=== PATIENT | female | born 1995 | race Caucasian/White ===

== ENCOUNTER → 2018-09-08 08:19 | Outpatient (CLI) | payer OTHER, SELFPAY ==
[2018-09-08 09:26] LABS: HCG,Quantitative 21 mIU/mL
== END ==
PROVIDERS: Visit Provider Nurse Practitioner Obstetrics & Gynecology
DX: Z32.00 Encounter for pregnancy test, result unknown (principal)
CPT/HCPCS: 36415; 84702

== ENCOUNTER → 2018-09-10 11:57 | Outpatient (CLI) | payer OTHER, SELFPAY ==
[2018-09-10 17:36] LABS: HCG,Quantitative 25 mIU/mL
== END ==
PROVIDERS: Visit Provider Nurse Practitioner Obstetrics & Gynecology
DX: Z32.00 Encounter for pregnancy test, result unknown (principal)
CPT/HCPCS: 36415; 84702

== ENCOUNTER → 2018-09-17 08:19 | Outpatient (CLI) | payer OTHER, SELFPAY ==
[2018-09-17 09:15] LABS: HCG,Quantitative 292 mIU/mL
== END ==
PROVIDERS: Visit Provider Nurse Practitioner Obstetrics & Gynecology
DX: Z32.00 Encounter for pregnancy test, result unknown (principal)
CPT/HCPCS: 36415; 84702

== ENCOUNTER → 2018-10-04 09:34 | Outpatient (CLI) | payer OTHER, SELFPAY ==
[2018-10-04 10:07] LABS: Basophils % 0.3 % (0.1-2.0); Eosinophils # 0.1 K/mm3 (0.0-0.4); Eosinophils % 0.7 % (0.1-12.0); Hematocrit 31.3 % (37.0-47.0); Hemoglobin 9.7 g/dL (12.2-16.2); Lymphocytes # 4.3 K/mm3 (0.7-4.5); Lymphocytes % 36.5 % (10-50); Mean Corpuscular Hemoglobin 25.1 pg (27.0-31.2); Mean Corpuscular Volume 80.9 fl (81-99); Mean Platelet Volume 8.7 fl (7.4-10.4); Monocytes # 0.3 K/mm3 (0.1-1.0); Monocytes % 2.5 % (1.7-9.3); Platelet Count 289 K/mm3 (142-424); Red Blood Count 3.87 M/mm3 (4.20-5.40); Red Cell Distribution Width 14.5 % (11.5-17.5); White Blood Count 11.7 K/mm3 (4.8-10.8)
[2018-10-05 08:17] LABS: HIV Screen 4th Generation wRfx Non Reactive (Non Reactive); Rapid Plasma Reagin Ab Titer Non Reactive (NonRea<1:1)
[2018-10-05 16:27] LABS: Hepatitis B Surface Antigen Negative (Negative); Hepatitis C Antibody 0.1 s/co ratio (0.0-0.9); Rubella Antibodies, IgG 1.69 index (Immune >0.99)
== END ==
PROVIDERS: Visit Provider Nurse Practitioner Obstetrics & Gynecology
DX: Z34.90 Encounter for supervision of normal pregnancy, unspecified, unspecified trimester (principal)
CPT/HCPCS: 36415; 85025; 86592; 86703; 86762; 86850; 87340; 87380; G0432

== ENCOUNTER → 2018-10-08 13:19 | Outpatient (CLI) | payer OTHER, SELFPAY ==
--- NOTE | 2018-10-08 13:22 | US_ITS ---
US OB transvaginal HISTORY: ITS.REASON: US OB Dates ORDERING PHYSICIAN: Sunil Deleon MD PATIENT AGE: 22 years COMPARISON: None FINDINGS: Uterus is retroverted An intrauterine gestational sac is present with a pole with a crown-rump length of 1.52cm correlating to gestational age of 8w0d. heart tones are present with an FHR of 157 bpm's. Yolk sac is noted. The amnion and chorion have not yet fused. Adnexa: Small bilateral ovarian cysts. IMPRESSION: Live intrauterine gestation at 8 weeks 0 days as described above. Estimated due date by Ultrasound is 05/20/2019
== END ==
PROVIDERS: PCP Family Medicine; Visit Provider Nurse Practitioner Obstetrics & Gynecology
DX: O26.841 Uterine size-date discrepancy, first trimester (principal)
CPT/HCPCS: 76817

== ENCOUNTER → 2018-12-31 13:26 | Outpatient (CLI) | payer OTHER, SELFPAY ==
--- NOTE | 2018-12-31 13:32 | US_ITS ---
PROCEDURE: US OB /MATERNAL DETAIL CLINICAL INDICATION: US OB Complete The the the the the the the the COMPARISON: OBTV US OB transvaginal from 10/08/2018 FINDINGS: Single viable intrauterine gestation. Cephalic position. Placenta: Posteriorplacenta grade 1. There is average amount fluid. The cervix appears satisfactory. Closed and measuring 3 cm in length. Complete survey performed and was unremarkable on the submitted images as in PACS. No discrete anomalies identified on survey imaging by technologist. Active fetus. Three-vessel cord with satisfactory umbilical cord insertion. 4- chamber heart noted. Survey of brain & ventricles Unremarkable. Face and neck survey unremarkable. Diaphragm and chest views unremarkable. Abdomen: Both kidneys noted and unremarkable. Stomach noted and satisfactory. Spine: Survey of the spine satisfactory with no anomalies identified nor imaged. Both arms and legs noted. Amniotic Fluid: Adequate. Maternal adnexa: No significant findings. Measurements: Average ultrasound age 20 weeks 2 days. Gestational Age 20 weeks Estimated due date by ultrasound age 0205/18/2019. Estimated weight 354.7 ggrams. BPD = 20 weeks OFD = 20 weeks 3 days HC = 19 weeks 4 days AC = 21 weeks 1 day FL = 20 weeks 1 day Growth Percentile= 71 percent% Heart Rate = Cerebellum = 19 weeks 6 days Humerus = 20 weeks 3 days HC/AC is 1.06 CI is 0.77 FL/BPD is 0.7 FL/AC is 0.2 IMPRESSION: There is a single live fetus in cephalic presentation with an average ultrasound age of 20 weeks and 2 days. All parameters correlate with no obvious anomalies. Please see above for detail Dictated by: Jayesh Apodaca MD 01/01/2019 10:43 Electronically signed by Jayesh Apodaca MD in [facility] 01/01/2019 10:43
== END ==
PROVIDERS: PCP Family Medicine; Visit Provider Nurse Practitioner Obstetrics & Gynecology
DX: Z36.0 Encounter for antenatal screening for chromosomal anomalies (principal)
CPT/HCPCS: 76811

== ENCOUNTER → 2019-02-16 11:26 | Outpatient (CLI) | payer OTHER, SELFPAY ==
[2019-02-16 12:22] LABS: Glucose,Fasting 107 mg/dL (60-105)
[2019-02-16 13:19] LABS: Glucose 1 Hour 201 mg/dL (74-106)
== END ==
PROVIDERS: Visit Provider Nurse Practitioner Obstetrics & Gynecology
DX: Z34.90 Encounter for supervision of normal pregnancy, unspecified, unspecified trimester (principal)
CPT/HCPCS: 36415; 82951

== ENCOUNTER → 2019-02-17 08:42 | Outpatient (CLI) | payer OTHER, SELFPAY | PROVIDERS: Visit Provider Nurse Practitioner Obstetrics & Gynecology | DX: Z34.90 Encounter for supervision of normal pregnancy, unspecified, unspecified trimester (principal) | CPT/HCPCS: 36415 ==

== ENCOUNTER → 2019-02-22 10:08 | Outpatient (CLI) | payer OTHER, SELFPAY ==
[2019-02-22 11:01] LABS: Glucose,Fasting 124 mg/dL (60-105)
[2019-02-22 12:08] LABS: Glucose 1 Hour 245 mg/dL (74-106)
[2019-02-22 17:42] LABS: Glucose 2 Hour 253 mg/dL (74-106); Glucose 3 Hour 185 mg/dL (74-106)
== END ==
PROVIDERS: Visit Provider Nurse Practitioner Obstetrics & Gynecology
DX: Z34.90 Encounter for supervision of normal pregnancy, unspecified, unspecified trimester (principal)
CPT/HCPCS: 36415; 82951

== ENCOUNTER → 2019-04-22 15:46 | Outpatient (CLI) | payer OTHER, SELFPAY | PROVIDERS: Visit Provider Nurse Practitioner Obstetrics & Gynecology | DX: Z34.90 Encounter for supervision of normal pregnancy, unspecified, unspecified trimester (principal); Z3A.36 36 weeks gestation of pregnancy | CPT/HCPCS: 86403 ==

== ENCOUNTER 2019-04-26 12:01 | Outpatient (CLI) | payer OTHER, SELFPAY ==
[2019-04-26] VITALS (8 sets, daily range): BP systolic 129–165; BP diastolic 80–97; BMI 49.2
[2019-04-26 13:32] LABS: Microscopic, Urine URINE MICROSCOPIC (MICROSCOPIC)
[2019-04-26 13:33] LABS: Appearance,Urine SL CLOUDY (Clear); Bilirubin,Urine Negative (Negative); Blood, Urine Negative (Negative); Color,Urine YELLOW (Yellow); Glucose,Urine (UA) Negative (Negative); Ketones,Urine TRACE (Negative); Leukocyte Esterase,Urine Negative (Negative); Nitrate,Urine Negative (Negative); Protein,Urine TRACE (Negative); Specific Gravity, Urine >= 1.030 (1.005-1.030); Urobilinogen,Urine 0.2 EU/dl (0.2)
[2019-04-26 13:42] LABS: Amphetamine/Metha Screen,Urine Negative ng/mL (<1000); Barbiturates Screen,Urine Negative ng/mL (<200); Benzodiazepines Screen,Urine Negative ng/mL (<200); Cannabinoid Screen,Urine Negative ng/mL (<50); Cocaine Screen,Urine Negative ng/mL (<300); Methadone Screen,Urine Negative ng/mL (<300); Opiate Screen,Urine Negative ng/mL (<300); Phencyclidine Screen,Urine Negative ng/mL (<25)
[2019-04-26 13:47] LABS: Bacteria,Urine Trace /lpf; Mucus,Urine 3+ /lpf
[2019-04-26 14:05] LABS: Basophils % 0.2 % (0.1-2.0); Eosinophils % 0.2 % (0.1-12.0); Hemoglobin 11.3 g/dL (12.2-16.2); Lymphocytes # 3.3 K/mm3 (0.7-4.5); Mean Corpuscular HGB Conc 32.4 g/dL (31.8-35.4); Mean Corpuscular Hemoglobin 26.8 pg (27.0-31.2); Mean Corpuscular Volume 82.8 fl (81-99); Mean Platelet Volume 10.6 fl (7.4-10.4); Monocytes # 0.3 K/mm3 (0.1-1.0); Monocytes % 2.3 % (1.7-9.3); Neutrophils # 8.2 K/mm3 (1.8-7.8); Neutrophils % 69.3 % (37.0-80.0); Platelet Count 243 K/mm3 (142-424); Red Blood Count 4.23 M/mm3 (4.20-5.40); Red Cell Distribution Width 13.9 % (11.5-17.5); White Blood Count 11.8 K/mm3 (4.8-10.8)
[2019-04-26 14:30] LABS: Alanine Aminotransferase 30 U/L (12-78); Anion Gap 16.7 mEq/L (5-15); Aspartate Amino Transferase 20 U/L (15-37); Blood Urea Nitrogen 8 mg/dL (7-18); Calcium 8.7 mg/dL (8.5-10.1); Carbon Dioxide 23 mmol/L (21.0-32.0); Chloride 103 mmol/L (98-107); Creatinine Clearance Estimated 97 mL/min (50-200); Creatinine,Serum 0.74 mg/dL (0.55-1.02); Estimated Glomerular Filt Rate 96 ml/min (>60); GFR (African American) 117 ML/MIN (>60); Glucose 75 mg/dL (74-106); Potassium 3.7 mmoL/L (3.5-5.1); Sodium 139 mmol/L (136-145); Uric Acid 4.5 mg/dL (2.6-7.2)
[2019-04-26 15:26] LABS: Activated Partial Thrombo Time 27.5 seconds (23.6-34.0); Fibrinogen 500 mg/dL (204-500); INR 0.94 (0.9-1.1); Prothrombin Time 9.8 seconds (9.4-11.8)
[2019-04-26 15:29] LABS: D-Dimer 1000 ng/mL (0-400)
== END 2019-04-26 15:00 | disposition home or self-care (01) ==
LOC: OBOUT 12:03 → OB 12:05
PROVIDERS: PCP Family Medicine; Visit Provider Nurse Practitioner Obstetrics & Gynecology
DX: O26.893 Other specified pregnancy related conditions, third trimester (principal); Z3A.36 36 weeks gestation of pregnancy; R51 Headache
CPT/HCPCS: 36415; 59025; 80048; 80305; 81001; 84450; 84460; 84550; 85025; 85378; 85384; 85610; 85730; G0463

== ENCOUNTER 2019-05-03 05:10 | Inpatient (IN) ==
[2019-05-03 06:22] LABS: Microscopic, Urine URINE MICROSCOPIC (MICROSCOPIC)
[2019-05-03 06:32] LABS: Basophils % 0.2 % (0.1-2.0); Eosinophils % 0.3 % (0.1-12.0); Hematocrit 34.4 % (37.0-47.0); Hemoglobin 11.1 g/dL (12.2-16.2); Lymphocytes # 3.2 K/mm3 (0.7-4.5); Lymphocytes % 29.6 % (10-50); Mean Corpuscular HGB Conc 32.2 g/dL (31.8-35.4); Mean Corpuscular Volume 83.3 fl (81-99); Monocytes # 0.3 K/mm3 (0.1-1.0); Monocytes % 3.1 % (1.7-9.3); Neutrophils # 7.3 K/mm3 (1.8-7.8); Neutrophils % 66.8 % (37.0-80.0); Platelet Count 199 K/mm3 (142-424); Red Blood Count 4.12 M/mm3 (4.20-5.40); White Blood Count 10.9 K/mm3 (4.8-10.8)
[2019-05-03 06:34] LABS: Appearance,Urine SL CLOUDY (Clear); Bilirubin,Urine Negative (Negative); Blood, Urine Negative (Negative); Color,Urine YELLOW (Yellow); Glucose,Urine (UA) Negative (Negative); Ketones,Urine Negative (Negative); Leukocyte Esterase,Urine Negative (Negative); Protein,Urine TRACE (Negative); Specific Gravity, Urine >= 1.030 (1.005-1.030); Urobilinogen,Urine 0.2 EU/dl (0.2)
[2019-05-03 06:37] LABS: Calcium 8.7 mg/dL (8.5-10.1); Uric Acid 5.1 mg/dL (2.6-7.2)
[2019-05-03 06:41] LABS: Amphetamine/Metha Screen,Urine Negative ng/mL (<1000); Barbiturates Screen,Urine Negative ng/mL (<200); Benzodiazepines Screen,Urine Negative ng/mL (<200); Cannabinoid Screen,Urine Negative ng/mL (<50); Cocaine Screen,Urine Negative ng/mL (<300); Methadone Screen,Urine Negative ng/mL (<300); Opiate Screen,Urine Negative ng/mL (<300); Phencyclidine Screen,Urine Negative ng/mL (<25)
[2019-05-03 06:44] LABS: Activated Partial Thrombo Time 27.1 seconds (23.6-34.0); INR 0.92 (0.9-1.1); Prothrombin Time 9.6 seconds (9.4-11.8)
[2019-05-03 06:57] LABS: Bacteria,Urine 1+ /lpf; WBC,Urine Occasional #/hpf (0-3)
--- NOTE | 2019-05-03 08:06 | Progress Note ---
Labor Note - Subjective: Date: 05/03/19 Time: 08:05 regular contraction - Objective: NST:: Reactive Contractions:: every 2-3 minutes Cervical Dilation:: 3 Effacement:: 75% Station: -2 Membranes: artificially ruptured - Fetus: Monitoring?: Yes monitoring type:: Internal and External Comment:: I inserted an IUPC - Assessment: Labor progressing?: Yes Cephalopelvic disproportion?: No Patient Problems: All Active Problems Gestational diabetes (Acute) (Acute) Irregular periods (Acute) Annual physical exam (Acute) - Plan: Anesthesia for epidural?: No Continue to labor down?: Yes Plan for ?: No Continue to monitor?: Yes Start pushing?: No Comment:: She has gestational diabetes with likely chronic hypertension and overlying -induced hypertension. Since she is term we will go ahead and deliver her. She has a headache as well as feeling jittery.
--- NOTE | 2019-05-03 08:09 | History & Physical Report ---
OB - H&P: HPI Antepartum - History of Present Illness Chief complaint: She has -induced hypertension and gestational diabetes History of present illness: She is a 23-year-old 1 para 0 at 37+ weeks gestational age. She has gestational diabetes as well as increased blood pressure. She has been taking labetalol. She was seen in the office and continued to have a headache as well as feeling very jittery. Her reflexes were brisk. As result of this we elected to induce her labor. - History of Present Criteria for establishing EDC:: LMP confirmed by 1st trimester US care: good care Ultrasounds: normal 1st trimester US, normal mid trimester US Obstetrical complications: gestational diabetes, gestational hypertension Medical complications: none - Labs Blood type: AB (+) positive Rubella: immune RPR/VDRL: nonreactive GBS status: negative HBsAG: negative [facility] History I have reviewed the patient's past medical history: Yes Medical History: Denies:: Anxiety, Depression, Diabetes Mellitus Type 1, Hyperlipidemia, Hypertension, Migraine, MRSA *Have you ever received a pneumonia vaccine?: No *Have you received a flu vaccine this season?: Yes Laterality Cases: Bilateral: Tonsillectomy, Other Other Surgeries: Yes: Other. No: Amputation: No Fractures: No - *Social History Smoking Status: Never smoker Alcohol Intake: never Substance Use Type: denies use *Occupational Status:: employed Housing: house Household Members: family *Travel in the last 8 weeks: None - Psychiatric History Pschychiatric History:: Denies:: Anxiety, Depression Family Hx:: Diabetes, Heart Attack, Tuberculosis Para: 0 Review of Systems - Review of Systems Review of systems:: pertinent systems reviewed and negative unless documented below Meds Home Medications Medication Instructions Recorded Confirmed Type prenat.vits,nicolás,abz-[id number] 1 tab PO DAILY 12/01/17 05/03/19 History magnesium 250 mg tablet 500 mg PO DAILY tab 02/07/19 05/03/19 History RX: Ferrous Sulfate 325 mg PO DAILY 04/26/19 05/03/19 History RX: Labetalol HCl 200 mg PO BID 05/03/19 05/03/19 History Allergies Allergy/AdvReac Type Severity Reaction Status Date / Time Latex, Natural Rubber Allergy Mild Verified 05/02/19 12:06 Penicillins Allergy Unknown Verified 05/02/19 12:06 OB - H&P: Exam - Constitutional no acute distress - Routine HEENT Exam Head: Present: normocephalic Eye: Present: EOMI, PERRL ENT: Present: mucous membranes moist - Routine Neck Exam Present: supple, full ROM - Routine Respiratory Exam Absent: accessory muscle use (good air entry bilaterally), respiratory distress, wheezes, crackles - Routine Cardiovascular Exam Present: RRR. Absent: murmur - Routine Abdominal Exam Present: soft, normoactive bowel sounds. Absent: tenderness, distended, guarding - Routine Rectal Exam Patient deferred: visual exam, digital exam - Routine Exam Patient deferred: external exam, groin exam, perineal exam - Routine Extremities Exam Present: full ROM. Absent: cyanosis, edema - Routine Skin Exam Present: intact. Absent: cyanosis - Routine Neurological Exam Present: alert, oriented X3 - Routine Psychiatric Exam Present: normal affect OB - Results - Labs Labs: Short CBC 05/03/19 Range/Units 06:05 WBC 10.9 H (4.8-10.8) K/mm3 Hgb 11.1 L (12.2-16.2) g/dL Hct 34.4 L (37.0-47.0) % Plt Count 199 (142-424) K/mm3 BMP 05/03/19 06:05 Sodium 140 Potassium 4.0 Chloride 104 Carbon Dioxide 22 BUN 10 Creatinine 0.70 Glucose 131 H Calcium 8.7 Liver Function 05/03/19 Range/Units 06:05 AST 20 (15-37) U/L ALT 30 (12-78) U/L Urine 05/03/19 Range/Units 05:35 Urine Color Yellow (Yellow) Urine Appearance Sl cloudy (Clear) Urine pH 6.0 (5.0-8.5) Ur Specific [place] >= 1.030 (1.005-1.030) Urine Protein Trace (Negative) Urine Glucose (UA) Negative (Negative) OB - A/P Antepartum (1) induced hypertension, antepartum Current visit: Yes Status: Acute (2) Chronic hypertension affecting Current visit: Yes Status: Acute (3) Gestational diabetes Current visit: No Status: Acute - Additional Plan Planning to breastfeed?: Yes Plan: induction Additional Information:: She is currently 37+ weeks gestational age with gestational diabetes and increased blood pressure. As result of this we will induce her labor. She has been feeling unwell.
--- NOTE | 2019-05-03 10:46 | Progress Note ---
Labor Note - Subjective: Date: 05/03/19 Time: 10:45 regular contraction - Objective: NST:: Reactive Contractions:: every 2-3 minutes Cervical Dilation:: 4 Effacement:: 75% Station: -3 Membranes: artificially ruptured - Fetus: Monitoring?: Yes monitoring type:: Internal and External - Assessment: Labor progressing?: Yes Cephalopelvic disproportion?: No Patient Problems: All Active Problems induced hypertension, antepartum (Acute) Chronic hypertension affecting (Acute) Gestational diabetes (Acute) (Acute) Irregular periods (Acute) Annual physical exam (Acute) - Plan: Anesthesia for epidural?: Yes Continue to labor down?: Yes Plan for ?: No Continue to monitor?: Yes Start pushing?: No Comment:: She is progressing well. The cervix is very soft and 4 cm. She has an IUPC. She is awaiting an epidural. Will plan a vaginal delivery.
--- NOTE | 2019-05-03 12:21 | Progress Note ---
[facility] Anesthesia Checklist - Patient Identification Patient Identification: Arm Band, Verbal (Name & ) - Structural Data Admitted From: Home Planned Operative Procedure/s: Labor epidural Consent for Planned Operative Procedure(s) Verified: Yes Verified Documents: Surgical Consent, History and Physical - Chart Verification Results Verified: CBC - Additional verifications Patient : Yes Anesthesia Reactions: No - Airway Assessment C-Spine Mobility Assessed: Yes TMJ Mobility Assessed: Yes Dentition: Good Dentition (missing teeth) - Neurological Assessment Level of Consciousness: Awake, Alert, Appropriate, Follows Commands Hx Seizures: No Numbness or tingling in extremities: No - Anesthesia Plan Anesthesia Risk discussed: Yes Anesthesia Plan: Verified ASA Class: III Anesthesia Type: Epidural [facility] History I have reviewed the patient's past medical history: Yes Medical History: Reports:: Gastroesophageal Reflux Disease(GERD) ( induced), Hypertension (PIH) Denies:: Anxiety, Depression, Diabetes Mellitus Type 1, Hyperlipidemia, Migraine, MRSA *Have you ever received a pneumonia vaccine?: No *Have you received a flu vaccine this season?: Yes Anesthesia experience/problems:: no complications Laterality Cases: Bilateral: Tonsillectomy, Other Other Surgeries: Yes: Other. No: Amputation: No Fractures: No - *Social History Smoking Status: Never smoker Alcohol Intake: never Substance Use Type: denies use *Occupational Status:: employed Housing: house Household Members: family *Travel in the last 8 weeks: None - Psychiatric History Pschychiatric History:: Denies:: Anxiety, Depression Family Hx:: Diabetes, Heart Attack, Tuberculosis Para: 0 Comment: Pt states 37 weeks 5 days gestational age, dilated 4cm
--- NOTE | 2019-05-03 13:27 | Progress Note ---
Labor Note - Subjective: Date: 05/03/19 Time: 13:26 regular contraction - Objective: NST:: Reactive Contractions:: every 2-3 minutes Cervical Dilation:: 4-5 Effacement:: 90% Station: -2 Membranes: artificially ruptured - Fetus: Monitoring?: Yes monitoring type:: Internal and External - Assessment: Labor progressing?: Yes Cephalopelvic disproportion?: No Patient Problems: All Active Problems induced hypertension, antepartum (Acute) Chronic hypertension affecting (Acute) Gestational diabetes (Acute) (Acute) Irregular periods (Acute) Annual physical exam (Acute) - Plan: Anesthesia for epidural?: Yes Continue to labor down?: Yes Plan for ?: No Continue to monitor?: Yes Start pushing?: No Comment:: She is progressing slowly. The cervix has thinned out significantly. Baby's head is still little high. We will continue on.
--- NOTE | 2019-05-03 15:32 | Progress Note ---
Labor Note - Subjective: Date: 05/03/19 Time: 15:00 regular contraction - Objective: NST:: Reactive Contractions:: every 2-3 minutes Cervical Dilation:: 6 Effacement:: 100% Station: -1 Membranes: artificially ruptured - Fetus: Monitoring?: Yes monitoring type:: Internal - Assessment: Labor progressing?: Yes Cephalopelvic disproportion?: No Patient Problems: All Active Problems induced hypertension, antepartum (Acute) Chronic hypertension affecting (Acute) Gestational diabetes (Acute) (Acute) Irregular periods (Acute) Annual physical exam (Acute) - Plan: Anesthesia for epidural?: Yes Continue to labor down?: Yes Plan for ?: No Continue to monitor?: Yes Start pushing?: No Comment:: I put a scalp clip on. She was having a few variables. These have now settled. She is a good 6 cm and 100% effaced. The head is come down significantly. We will go ahead and start an amnioinfusion.
--- NOTE | 2019-05-03 16:53 | Progress Note ---
Labor Note - Subjective: Date: 05/03/19 Time: 16:51 regular contraction - Objective: NST:: Reactive Contractions:: every 2-3 minutes Cervical Dilation:: 9-10 Effacement:: 100% Station: +1 Membranes: artificially ruptured - Fetus: Monitoring?: Yes monitoring type:: Internal - Assessment: Labor progressing?: Yes Cephalopelvic disproportion?: No Patient Problems: All Active Problems induced hypertension, antepartum (Acute) Chronic hypertension affecting (Acute) Gestational diabetes (Acute) (Acute) Irregular periods (Acute) Annual physical exam (Acute) - Plan: Anesthesia for epidural?: Yes Continue to labor down?: Yes Plan for ?: No Continue to monitor?: Yes Start pushing?: No Comment:: She is doing well. She is 9 cm. Baby's head is down low.
--- NOTE | 2019-05-03 17:46 | Procedure Note ---
- Delivery Note Delivery Date:: 05/03/19 Delivery Time:: 17:31 Anesthesia Type: Epidural Was labor medically induced?: Yes Induction method: per pitocin protocol Infant delivered prior to 39 weeks?: Yes Justification for early elective delivery:: Gestational Hypertension Infant Gender: Male at 1 minute: 7 at 5 minutes: 9 LAC or MLE?: LAC Delivery Procedure:: She is a 23-year-old 1 now para 0 at 37+ weeks gestational age. She is been followed with increased blood pressure. She was seen in my office yesterday and had a headache and was feeling quite jittery. As result of that we elected to induce her labor at term. She was started on IV oxytocin and had her membranes ruptured. Under labor epidural she progressed to full dilation and delivered spontaneously a liveborn male child at 5:31 PM in the evening of May 03, 2019. On deliver the head the anterior shoulder then delivered followed by the rest the infant's body atraumatically. The baby was vigorous. The oropharynx and nasopharynx were bulb suction. We allowed the cord to continue to pulsate for approximately 1 minute. The cord was then doubly clamped and cut and the was placed on the mother's abdomen for further care. The nurses assigned Apgars of 7 at 1 minute and 9 at 5 minutes. We then obtained cord blood as well as cord pH. She received IV oxytocin and using gentle traction on the cord and countertraction fundus I was able to easily deliver the placenta intact. He had a normal three-vessel cord. She had a small first-degree vaginal laceration that was repaired with interrupted 3-0 Vicryl Rapide suture. She has a be positive blood, she is rubella immune and was group B streptococcus negative. Her diesel dinkey engineer is Dr. Olivas. Estimated blood loss was approximately 400 cc. Laceration:: vaginal Placental Delivery Description: Spontaneous
[2019-05-04 08:29] LABS: Hematocrit 31.6 % (37.0-47.0); Hemoglobin 10.4 g/dL (12.2-16.2)
--- NOTE | 2019-05-04 10:06 | Progress Note ---
Internal Medicine - PN: Subj *Date: 05/04/19 *Time: 10:04 Interval history: She is doing well this morning. She is eating and drinking and ambulating. She is breast-feeding. Her lochia is normal. She denies any pain. Her blood pressure is slightly elevated and she has been restarted on her labetalol 200 mg twice daily. She denies headache, scotomata or epigastric pain. Exam Vital signs and Labs for Last 24 Hours: Temp Pulse Resp BP Pulse Ox 98.6 F 74 18 111/55 L 100 05/03/19 08:00 05/03/19 08:00 05/03/19 08:00 05/03/19 08:00 05/03/19 08:00 Laboratory Results - last 24 hr 05/03/19 17:46: Cord ABG pH 7.21 L* 05/04/19 08:00: Hgb 10.4 L, Hct 31.6 L I & O for Last 24 hours: Intake & Output 05/01/19 05/02/19 05/03/19 05/04/19 11:59 11:59 11:59 11:59 Weight 279 lb - Constitutional no acute distress Assessment and Plan (1) induced hypertension, antepartum Current visit: Yes Status: Acute Category: Medical Code(s): O13.9 - Ges tational [-induced] hypertension without significant proteinuria, unspecified trimester (2) Chronic hypertension affecting Current visit: Yes Status: Acute Category: Medical Code(s): O10.919 - Unspecified pre-existing hypertension complicating , unspecified trimester (3) Gestational diabetes Current visit: No Status: Acute Qualifiers: Gestational diabetes mellitus control: diet-controlled Trimester: third trimester Qualified Code(s): O24.410 - Gestational diabetes mellitus in , diet controlled Category: Medical Code(s): O24.419 - Gestational diabetes mellitus in , unspecified control - Assessment and plan all Dx Assessment and Plan for all problems:: She is doing very well. She is breast-feeding. We will plan to send her home tomorrow.
--- NOTE | 2019-05-05 08:59 | Discharge Summary ---
General - General Admission date:: 05/03/19 Discharge date: 05/05/19 HPI HPI: She is a 23-year-old 1 now para 0 who had increased blood pressure. She also had diet-controlled gestational diabetes. As result of that she was brought in for induction of labor at term. Hospital Course Hospital Course: She was started on IV oxytocin and had her membranes ruptured. She progressed to full dilation and delivered spontaneously a liveborn male child at 5:31 PM in the afternoon of April 25, 2019. The baby is a liveborn male child weighing 7 pounds 14 ounces with Apgars of 7 at 1 minute and 8 at 5 minutes. She has done well and has remained afebrile throughout hospitalization. She is eating and drinking and ambulating. She is breast-feeding. Her display maker Dr. Olivas. Her blood pressure is well controlled on labetalol 200 mg twice daily. Her blood pressures have remained in the 130-140 range over 80-90 range. She denies any headache or scotomata. She is discharged home to follow-up with me in approximate 2 weeks time. She will continue with her vitamins and iron. She will continue with her labetalol 200 mg twice daily. She was given the usual instructions with respect to limiting her activity, driving and sexual activity. Her condition on discharge is stable. Rhogam Administration: Not Indicated Objective Vital signs: Temp Pulse Resp BP Pulse Ox 98.7 F 82 18 146/71 H 100 05/04/19 08:00 05/04/19 08:00 05/04/19 08:00 05/04/19 16:00 05/03/19 08:00 no acute distress DS: Diagnosis - Discharge Diagnosis (1) induced hypertension, antepartum Status: Acute (2) Chronic hypertension affecting Status: Acute (3) Gestational diabetes Status: Acute Discharge Plan - Patient Discharge Instructions ACTIVITY: No heavy lifting DIET: continue same diet Additional Instructions: No heavy lifting or strenuous activity, nothing in vagina for 6 weeks. Patient Instructions: DI for Hemorrhage, Depression, [facility] Post Discharge Instructions - Follow up Plan Follow up with: Sunil Deleon MD [Staff Physician] - Disposition: Home, Self-[facility]ci Medications: Home Medications Medication Instructions Recorded Confirmed Type prenat.vits,nicolás,[id number] 1 tab PO DAILY 12/01/17 05/03/19 History magnesium 250 mg tablet 500 mg PO DAILY tab 02/07/19 05/03/19 History Ferrous Sulfate 325 mg PO DAILY 04/26/19 05/03/19 History Labetalol HCl 200 mg PO BID 05/03/19 05/03/19 History Prescriptions/Medication Reconciliation: Continued prenat.vits,nicolás,kpe-[id number] 1 tab PO DAILY magnesium 250 mg tablet 500 mg PO DAILY tab Ferrous Sulfate 325 mg PO DAILY Labetalol HCl 200 mg PO BID - Problem Reconciliation Problems Reviewed?: Yes
[2019-05-05 09:08] VITALS: BP 120/61
== END 2019-05-05 11:45 | disposition home or self-care (01) | DRG 805 ==
LOC: OB 05:10
PROVIDERS: ADMIT Nurse Practitioner Obstetrics & Gynecology; ATTEND Nurse Practitioner Obstetrics & Gynecology
CPT/HCPCS: C1758

== ENCOUNTER → 2020-12-17 16:54 | Outpatient (CLI) | payer OTHER, SELFPAY ==
[2020-12-17 17:59] LABS: HCG,Quantitative 15 mIU/ml (0-5.42)
== END ==
PROVIDERS: Visit Provider Nurse Practitioner Obstetrics & Gynecology
DX: Z34.90 Encounter for supervision of normal pregnancy, unspecified, unspecified trimester (principal)
CPT/HCPCS: 36415; 84702

== ENCOUNTER → 2020-12-20 11:56 | Outpatient (CLI) | payer OTHER, SELFPAY ==
[2020-12-20 13:41] LABS: HCG,Quantitative 4 mIU/ml (0-5.42)
== END ==
PROVIDERS: Visit Provider Nurse Practitioner Obstetrics & Gynecology
DX: Z34.90 Encounter for supervision of normal pregnancy, unspecified, unspecified trimester (principal)
CPT/HCPCS: 36415; 84702

== ENCOUNTER → 2021-01-21 13:18 | Outpatient (CLI) | payer OTHER, SELFPAY ==
[2021-01-21 15:10] LABS: HCG,Quantitative 81 mIU/ml (0-5.42)
== END ==
PROVIDERS: Visit Provider Nurse Practitioner Obstetrics & Gynecology
DX: Z34.90 Encounter for supervision of normal pregnancy, unspecified, unspecified trimester (principal)
CPT/HCPCS: 36415; 84702

== ENCOUNTER → 2021-01-24 11:29 | Outpatient (CLI) | payer OTHER, SELFPAY ==
[2021-01-24 12:35] LABS: HCG,Quantitative 252 mIU/ml (0-5.42)
== END ==
PROVIDERS: Visit Provider Nurse Practitioner Obstetrics & Gynecology
DX: Z34.90 Encounter for supervision of normal pregnancy, unspecified, unspecified trimester (principal)
CPT/HCPCS: 36415; 84702

== ENCOUNTER → 2021-03-05 15:49 | Outpatient (CLI) | payer OTHER, SELFPAY ==
[2021-03-05 17:13] LABS: Basophils % 0.2 % (0.1-2.0); Eosinophils % 0.3 % (0.1-12.0); Hematocrit 33.5 % (37.0-47.0); Hemoglobin 11.2 g/dL (12.2-16.2); Lymphocytes # 3.8 K/mm3 (0.7-4.5); Lymphocytes % 30.4 % (10-50); Mean Corpuscular HGB Conc 33.3 g/dL (31.8-35.4); Mean Corpuscular Hemoglobin 26.6 pg (27.0-31.2); Mean Corpuscular Volume 79.7 fl (81-99); Mean Platelet Volume 8.6 fl (7.4-10.4); Monocytes # 0.3 K/mm3 (0.1-1.0); Monocytes % 2.5 % (1.7-9.3); Neutrophils # 8.4 K/mm3 (1.8-7.8); Neutrophils % 66.5 % (37.0-80.0); Platelet Count 313 K/mm3 (142-424); Red Cell Distribution Width 13.8 % (11.5-17.5); White Blood Count 12.6 K/mm3 (4.8-10.8)
[2021-03-07 05:09] LABS: Hepatitis B Surface Antigen Negative (Negative); Hepatitis C Antibody <0.1 s/co ratio (0.0-0.9)
[2021-03-07 07:32] LABS: HIV Screen 4th Generation wRfx Non Reactive (Non Reactive); HSV 2 IgG, Type Spec <0.91 index (0.00-0.90); Rubella Antibodies, IgG 1.56 index (Immune >0.99)
[2021-03-07 13:31] LABS: Rapid Plasma Reagin Ab Titer Non Reactive (NonRea<1:1)
== END ==
PROVIDERS: Visit Provider Nurse Practitioner Obstetrics & Gynecology
DX: Z34.90 Encounter for supervision of normal pregnancy, unspecified, unspecified trimester (principal); Z3A.01 Less than 8 weeks gestation of pregnancy
CPT/HCPCS: 36415; 85025; 86592; 86695; 86703; 86762; 86790; 86850; 87340; 87380; G0432

== ENCOUNTER → 2021-03-12 13:04 | Outpatient (CLI) | payer OTHER, SELFPAY ==
--- NOTE | 2021-03-12 13:05 | US_ITS ---
PROCEDURE: US OB <= 14 WEEKS FETUS CLINICAL INDICATION: for dates COMPARISON: US US OB /MATERNAL DETAIL from 12/31/2018 FINDINGS: There is a twin gestation. There are 2 gestational sacs and 2 embryos. Fetus a crown-rump length is 4.26 cm correlating to gestational age of 11 weeks 1 day. Heart rate is 144 BPM.. Fetus B has a crown lump length of 4.36 cm correlating to gestational age 11 weeks 2 days. Heart rate is 167 BPM. Placenta is are forming laterally. There is a 3 cm right ovarian cyst. Yolk sacs are noted in each sac IMPRESSION: Twin gestations at 11 weeks 1 day with an estimated due date of 09/29/2021. Dictated by: Jayesh Apodaca MD 03/12/2021 17:22 Jayesh Apodaca MD in [facility] 03/12/2021 17:22
== END ==
PROVIDERS: PCP Family Medicine; Visit Provider Nurse Practitioner Obstetrics & Gynecology
DX: Z34.90 Encounter for supervision of normal pregnancy, unspecified, unspecified trimester (principal)
CPT/HCPCS: 76801

== ENCOUNTER → 2021-06-05 07:38 | Outpatient (CLI) | payer OTHER, SELFPAY ==
[2021-06-05 08:10] LABS: Basophils # 0.1 K/mm3 (0-0.2); Basophils % 0.7 % (0.1-2.0); Eosinophils # 0.1 K/mm3 (0.0-0.4); Eosinophils % 0.8 % (0.1-12.0); Hematocrit 32.3 % (37.0-47.0); Hemoglobin 10.4 g/dL (12.2-16.2); Lymphocytes # 2.7 K/mm3 (0.7-4.5); Lymphocytes % 25.1 % (10-50); Mean Corpuscular HGB Conc 32.2 g/dL (31.8-35.4); Mean Corpuscular Hemoglobin 27.3 pg (27.0-31.2); Mean Corpuscular Volume 84.8 fl (81-99); Mean Platelet Volume 9.5 fl (7.4-10.4); Monocytes # 0.3 K/mm3 (0.1-1.0); Monocytes % 2.7 % (1.7-9.3); Neutrophils # 7.6 K/mm3 (1.8-7.8); Neutrophils % 70.7 % (37.0-80.0); Platelet Count 248 K/mm3 (142-424); Red Blood Count 3.81 M/mm3 (4.20-5.40); Red Cell Distribution Width 14.9 % (11.5-17.5); White Blood Count 10.7 K/mm3 (4.8-10.8)
[2021-06-05 09:46] LABS: Fibrinogen 597 mg/dL (229.9-363.5); INR 0.93 (0.9-1.1); Prothrombin Time 10.6 seconds (10.1-12.5)
[2021-06-05 09:51] LABS: D-Dimer 0.74 ug/mL (0.0-0.5)
[2021-06-05 10:03] LABS: Glucose 1 Hour 219 mg/dL (74-100); Glucose,Fasting 128 mg/dl (74-100)
[2021-06-05 10:53] LABS: Alanine Aminotransferase 27 U/L (12-78); Anion Gap 43.5 mEq/L (5-15); Aspartate Amino Transferase 27 U/L (14-36); Blood Urea Nitrogen 7 mg/dl (7-17); Carbon Dioxide 18 mmol/L (22.0-30.0); Chloride 85 mmol/L (98-107); Estimated Glomerular Filt Rate 193 ml/min (>60); GFR (African American) 233 ML/MIN (>60); Glucose 119 mg/dl (74-100); Potassium 3.5 mmoL/L (3.5-5.1); Sodium 143 mmol/L (136-145); Uric Acid 3.9 mg/dl (2.5-6.2)
[2021-06-05 12:31] LABS: Calcium 8.1 mg/dl (8.4-10.2)
== END ==
PROVIDERS: Visit Provider Nurse Practitioner Obstetrics & Gynecology
DX: O30.042 Twin pregnancy, dichorionic/diamniotic, second trimester (principal); Z3A.23 23 weeks gestation of pregnancy
CPT/HCPCS: 36415; 80048; 82951; 84450; 84460; 84550; 85025; 85378; 85384; 85610; 85730

== ENCOUNTER → 2021-06-10 09:40 | Outpatient (CLI) | payer OTHER, SELFPAY ==
[2021-06-10 11:00] LABS: Glucose,Fasting 111 mg/dl (74-100)
[2021-06-10 11:02] LABS: Collection Time,Urine 24 hours
[2021-06-10 12:06] LABS: Creatinine 24 Hour,Urine 1958 mg/24hr (630-2500); Patient Height,Urine 63 inches; Patient Weight,Urine 280 lbs
[2021-06-10 12:13] LABS: Total Protein 24 Hour,Urine 220 mg/24 hr (40-90)
[2021-06-10 12:16] LABS: Creatinine,Urine Random 89 mg/dL (Not Estab.)
[2021-06-10 12:31] LABS: Glucose 1 Hour 250 mg/dL (74-100)
[2021-06-10 13:06] LABS: Glucose 2 Hour 253 mg/dL (74-100)
[2021-06-10 13:48] LABS: Glucose 3 Hour 207 mg/dL (74-100)
[2021-06-10 13:51] LABS: Total Volume,Urine 2200 mL (600-1600)
[2021-06-10 14:19] LABS: Creatinine Clearance Urine 211.3 mL/min (25-115)
== END ==
PROVIDERS: Visit Provider Nurse Practitioner Obstetrics & Gynecology
DX: O30.009 Twin pregnancy, unspecified number of placenta and unspecified number of amniotic sacs, unspecified trimester
CPT/HCPCS: 36415; 82575; 82951; 84155

== ENCOUNTER → 2021-08-09 14:29 | Outpatient (CLI) | payer OTHER, SELFPAY ==
[2021-08-09 15:17] LABS: Basophils % 0.3 % (0.1-2.0); Eosinophils # 0.1 K/mm3 (0.0-0.4); Eosinophils % 0.7 % (0.1-12.0); Hematocrit 32.8 % (37.0-47.0); Hemoglobin 10.9 g/dL (12.2-16.2); Lymphocytes # 3.1 K/mm3 (0.7-4.5); Lymphocytes % 31.5 % (10-50); Mean Corpuscular HGB Conc 33.3 g/dL (31.8-35.4); Mean Corpuscular Hemoglobin 27.6 pg (27.0-31.2); Mean Corpuscular Volume 82.9 fl (81-99); Mean Platelet Volume 11.5 fl (7.4-10.4); Monocytes # 0.4 K/mm3 (0.1-1.0); Monocytes % 3.8 % (1.7-9.3); Neutrophils # 6.3 K/mm3 (1.8-7.8); Neutrophils % 63.7 % (37.0-80.0); Platelet Count 242 K/mm3 (142-424); Red Blood Count 3.95 M/mm3 (4.20-5.40); Red Cell Distribution Width 14.2 % (11.5-17.5); White Blood Count 9.9 K/mm3 (4.8-10.8)
[2021-08-09 15:25] LABS: D-Dimer 0.88 ug/mL (0.0-0.5)
[2021-08-09 15:26] LABS: Activated Partial Thrombo Time 23.5 seconds (22.8-30.6); Fibrinogen 664 mg/dL (229.9-363.5); Prothrombin Time 10.3 seconds (10.1-12.5)
[2021-08-09 15:38] LABS: Alanine Aminotransferase 41 U/L (12-78); Anion Gap 13.1 mEq/L (5-15); Aspartate Amino Transferase 39 U/L (14-36); Blood Urea Nitrogen 7 mg/dl (7-17); Calcium 8.8 mg/dl (8.4-10.2); Carbon Dioxide 21 mmol/L (22.0-30.0); Chloride 104 mmol/L (98-107); Estimated Glomerular Filt Rate 149 ml/min (>60); GFR (African American) 180 ML/MIN (>60); Glucose 146 mg/dl (74-100); Potassium 4.1 mmoL/L (3.5-5.1); Sodium 134 mmol/L (136-145); Uric Acid 4.5 mg/dl (2.5-6.2)
== END ==
PROVIDERS: PCP Internal Medicine Adolescent Medicine; Visit Provider Nurse Practitioner Obstetrics & Gynecology
DX: O13.9 Gestational [pregnancy-induced] hypertension without significant proteinuria, unspecified trimester (principal)
CPT/HCPCS: 36415; 80048; 84450; 84460; 84550; 85025; 85378; 85384; 85610; 85730

== ENCOUNTER → 2021-08-12 11:32 | Outpatient (CLI) | payer OTHER, SELFPAY ==
[2021-08-12 12:12] LABS: Collection Time,Urine 24 hours; Total Volume,Urine 1950 mL (600-1600)
[2021-08-12 12:36] LABS: Total Protein 24 Hour,Urine 273 mg/24 hr (40-90)
[2021-08-12 12:37] LABS: Creatinine 24 Hour,Urine 1716 mg/24hr (630-2500)
[2021-08-12 12:38] LABS: Creatinine,Urine Random 88 mg/dL (Not Estab.)
[2021-08-12 13:12] LABS: Patient Height,Urine 63 inches
[2021-08-12 13:14] LABS: Creatinine Clearance Urine 132.6 mL/min (25-115)
== END ==
PROVIDERS: Visit Provider Nurse Practitioner Obstetrics & Gynecology
DX: O13.9 Gestational [pregnancy-induced] hypertension without significant proteinuria, unspecified trimester (principal)
CPT/HCPCS: 82575; 84155

== ENCOUNTER 2021-08-19 12:03 | Outpatient (CLI) | payer OTHER, SELFPAY ==
[2021-08-19 12:24] VITALS: BMI 49.7
== END 2021-08-19 13:00 | disposition home or self-care (01) ==
LOC: OBOUT 12:05 → OB 12:06
PROVIDERS: PCP Internal Medicine Adolescent Medicine; Visit Provider Nurse Practitioner Obstetrics & Gynecology
DX: O26.893 Other specified pregnancy related conditions, third trimester (principal); Z3A.34 34 weeks gestation of pregnancy
CPT/HCPCS: 59025; G0463

== ENCOUNTER 2021-08-26 12:38 | Outpatient (CLI) | payer OTHER, SELFPAY ==
[2021-08-26 13:02] VITALS: BP 132/68; PULSE 77; RESP 18; TEMP 36.7; O2SAT 99; BMI 50.1
== END 2021-08-26 13:20 | disposition home or self-care (01) ==
LOC: OBOUT 12:39 → OB 12:39
PROVIDERS: PCP Internal Medicine Adolescent Medicine; Visit Provider Nurse Practitioner Obstetrics & Gynecology
DX: O26.893 Other specified pregnancy related conditions, third trimester (principal); Z3A.37 37 weeks gestation of pregnancy
CPT/HCPCS: 59025; G0463

== ENCOUNTER 2021-09-04 10:32 | Outpatient (CLI) | payer OTHER, SELFPAY ==
[2021-09-04 10:45] VITALS: BMI 50.3
[2021-09-04 11:01] VITALS: BP 121/73; PULSE 92; RESP 16; TEMP 36.8; O2SAT 97; BMI 50.3
[2021-09-04 11:26] LABS: Basophils # 0.1 K/mm3 (0-0.2); Basophils % 0.9 % (0.1-2.0); Eosinophils % 0.3 % (0.1-12.0); Hematocrit 31.7 % (37.0-47.0); Hemoglobin 10.6 g/dL (12.2-16.2); Lymphocytes # 2.5 K/mm3 (0.7-4.5); Lymphocytes % 35.1 % (10-50); Mean Corpuscular HGB Conc 33.4 g/dL (31.8-35.4); Mean Corpuscular Hemoglobin 27.2 pg (27.0-31.2); Mean Corpuscular Volume 81.6 fl (81-99); Mean Platelet Volume 13.2 fl (7.4-10.4); Monocytes # 0.3 K/mm3 (0.1-1.0); Monocytes % 4.3 % (1.7-9.3); Neutrophils # 4.2 K/mm3 (1.8-7.8); Neutrophils % 59.3 % (37.0-80.0); Platelet Count 195 K/mm3 (142-424); Red Blood Count 3.89 M/mm3 (4.20-5.40); Red Cell Distribution Width 14.7 % (11.5-17.5); White Blood Count 7.1 K/mm3 (4.8-10.8)
[2021-09-04 11:36] LABS: Alanine Aminotransferase 47 U/L (12-78); Anion Gap 12.1 mEq/L (5-15); Aspartate Amino Transferase 44 U/L (14-36); Blood Urea Nitrogen 9 mg/dl (7-17); Calcium 8.7 mg/dl (8.4-10.2); Carbon Dioxide 23 mmol/L (22.0-30.0); Chloride 103 mmol/L (98-107); Creatinine Clearance Estimated 118 mL/min (50-200); Estimated Glomerular Filt Rate 121 ml/min (>60); GFR (African American) 146 ML/MIN (>60); Glucose 101 mg/dl (74-100); Potassium 4.1 mmoL/L (3.5-5.1); Sodium 134 mmol/L (136-145); Uric Acid 6.5 mg/dl (2.5-6.2)
[2021-09-04 11:41] LABS: D-Dimer 1.18 ug/mL (0.0-0.5)
[2021-09-04 11:42] LABS: Activated Partial Thrombo Time 26.8 seconds (22.8-30.6); Fibrinogen 585 mg/dL (229.9-363.5); Prothrombin Time 10.3 seconds (10.1-12.5)
== END 2021-09-04 11:25 | disposition home or self-care (01) ==
LOC: OBOUT 10:32 → OB 10:33
PROVIDERS: PCP Internal Medicine Adolescent Medicine; Visit Provider Nurse Practitioner Obstetrics & Gynecology
DX: Z34.90 Encounter for supervision of normal pregnancy, unspecified, unspecified trimester (principal); Z3A.36 36 weeks gestation of pregnancy
CPT/HCPCS: 59025; 80048; 84450; 84460; 84550; 85025; 85378; 85384; 85610; 85730; 86403; G0463

== ENCOUNTER → 2021-09-05 10:15 | Outpatient (CLI) | payer OTHER, SELFPAY | PROVIDERS: Visit Provider Nurse Practitioner Obstetrics & Gynecology | DX: Z34.90 Encounter for supervision of normal pregnancy, unspecified, unspecified trimester (principal) ==

== ENCOUNTER → 2021-09-06 09:39 | Outpatient (CLI) | payer OTHER, SELFPAY ==
[2021-09-06 12:13] LABS: Total Protein 24 Hour,Urine 1055 mg/24 hr (40-90)
[2021-09-06 14:33] LABS: Creatinine 24 Hour,Urine 1536 mg/24hr (630-2500); Creatinine,Urine Random 83 mg/dL (Not Estab.); Patient Height,Urine 63 inches; Patient Weight,Urine 281 lbs; Total Volume,Urine 1850 mL (600-1600)
[2021-09-06 14:41] LABS: Collection Time,Urine 24 hours
== END ==
PROVIDERS: Visit Provider Nurse Practitioner Obstetrics & Gynecology
DX: O16.3 Unspecified maternal hypertension, third trimester (principal); Z3A.36 36 weeks gestation of pregnancy
CPT/HCPCS: 36415; 82575; 84155

== ENCOUNTER → 2021-09-08 09:12 | Outpatient (CLI) | payer OTHER, SELFPAY ==
[2021-09-08 10:00] LABS: Basophils # 0.1 K/mm3 (0-0.2); Basophils % 1.1 % (0.1-2.0); Eosinophils % 0.4 % (0.1-12.0); Hematocrit 35.9 % (37.0-47.0); Hemoglobin 11.7 g/dL (12.2-16.2); Lymphocytes # 3.1 K/mm3 (0.7-4.5); Lymphocytes % 40.6 % (10-50); Mean Corpuscular HGB Conc 32.7 g/dL (31.8-35.4); Mean Corpuscular Hemoglobin 26.9 pg (27.0-31.2); Mean Corpuscular Volume 82.3 fl (81-99); Mean Platelet Volume 13.5 fl (7.4-10.4); Monocytes # 0.2 K/mm3 (0.1-1.0); Monocytes % 3.1 % (1.7-9.3); Neutrophils # 4.2 K/mm3 (1.8-7.8); Neutrophils % 54.8 % (37.0-80.0); Platelet Count 178 K/mm3 (142-424); Red Blood Count 4.36 M/mm3 (4.20-5.40); Red Cell Distribution Width 15.1 % (11.5-17.5); White Blood Count 7.7 K/mm3 (4.8-10.8)
[2021-09-08 10:23] LABS: Chloride 106 mmol/L (98-107)
[2021-09-08 10:24] LABS: Potassium 4.2 mmoL/L (3.5-5.1); Sodium 136 mmol/L (136-145)
[2021-09-08 10:26] LABS: Blood Urea Nitrogen 8 mg/dl (7-17); Estimated Glomerular Filt Rate 121 ml/min (>60); GFR (African American) 146 ML/MIN (>60)
[2021-09-08 10:27] LABS: Anion Gap 12.2 mEq/L (5-15); Carbon Dioxide 22 mmol/L (22.0-30.0); Glucose 100 mg/dl (74-100)
== END ==
PROVIDERS: PCP Internal Medicine Adolescent Medicine; Visit Provider Nurse Practitioner Obstetrics & Gynecology
DX: Z01.818 Encounter for other preprocedural examination (principal); Z20.822 Contact with and (suspected) exposure to COVID-19; O30.009 Twin pregnancy, unspecified number of placenta and unspecified number of amniotic sacs, unspecified trimester
CPT/HCPCS: 36415; 80048; 85025; C9803; U0003; U0005

== ENCOUNTER 2021-09-09 05:02 | Inpatient (IN) | payer OTHER, SELFPAY ==
[2021-09-09] VITALS (7 sets, daily range): BP systolic 129–188; BP diastolic 73–103; PULSE 62–100; RESP 11–18; TEMP 36.6–37.2; O2SAT 97–99; BMI 49.7
[2021-09-09 05:58] LABS: Coronavirus 19, PCR Not Detected (NotDetected); Influenza A, PCR Not Detected (NotDetected); Influenza B, PCR Not Detected (NotDetected); Microscopic, Urine URINE MICROSCOPIC (MICROSCOPIC)
[2021-09-09 06:08] LABS: Appearance,Urine CLOUDY (Clear); Blood, Urine Negative (Negative); Color,Urine YELLOW (Yellow); Glucose,Urine (UA) Negative (Negative); Ketones,Urine TRACE (Negative); Leukocyte Esterase,Urine 2+ (Negative); Nitrate,Urine Negative (Negative); PH,Urine 6.5 (5.0-8.5); Protein,Urine 1+ (Negative); Specific Gravity, Urine >= 1.030 (1.005-1.030); Urobilinogen,Urine 0.2 EU/dl (0.2)
[2021-09-09 06:19] LABS: Amphetamine/Metha Screen,Urine Negative ng/ml (<1000); Barbiturates Screen,Urine Negative ng/ml (<200)
[2021-09-09 06:20] LABS: Benzodiazepines Screen,Urine Negative ng/ml (<200)
[2021-09-09 06:21] LABS: Cannabinoid Screen,Urine Negative ng/ml (<50); Cocaine Screen,Urine Negative ng/ml (<300)
[2021-09-09 06:22] LABS: Methadone Screen,Urine Negative ng/ml (<300)
[2021-09-09 06:23] LABS: Opiate Screen,Urine Negative ng/ml (<300); Phencyclidine Screen,Urine Negative ng/ml (<25)
[2021-09-09 06:27] LABS: Bilirubin,Urine 1+ (Negative)
[2021-09-09 06:28] LABS: RBC,Urine Occasional #/hpf (0-3)
[2021-09-09 06:29] LABS: Bacteria,Urine 2+ /lpf; Calcium Oxalate Crystals,Urine 1+ /lpf
--- NOTE | 2021-09-09 07:13 | [facility].PHAINT ---
MEDICATION RECONCILIATION COMPLETED ON PATIENT USING EXTERNAL FILL HISTORY FROM PHARMACY. -QUITA HENLEY, NAYELID
--- NOTE | 2021-09-09 08:30 | [facility].OPNOTE ---
Date of procedure: 09/09/21 Pre-op Diagnosis:: Term , twins Post-op Diagnosis:: Term , twins Procedure performed:: Primary lower segment transverse section Surgeon:: Sunil Deleon MD Supervisor Tellers(s):: Dr. ROBLERO DYE HOUSE HAND:: Ronan Ford Anesthesia: spinal Estimated blood loss (mL): 1,800 Clinical Note:: She is a 25-year-old 2 para 1 at 37 weeks gestational age. She is noted to have twins as well as increased blood pressure. She has had chronic hypertension and a previous and has chronic hypertension with superimposed preeclampsia in this . She is here for primary lower segment transverse section. The risk and benefits of surgery were discussed with patient prior to surgery. Operative findings:: She delivered a liveborn male child at 7:50 AM on the morning of September 09, 2021. The baby had Apgars of 8 at 1 minute and 9 at 5 minutes. Twin B was delivered at 7:51 AM and was a female. She had Apgars of 8 at 1 minute and 8 at 5 minutes. Ovaries and tubes appeared normal. Uterus appeared normal. Operative note:: She was taken to the operating room where spinal anesthesia was found be adequate. She was prepped and draped in normal sterile fashion in the supine position with a leftward tilt. A Coley catheter was in the bladder. A Pfannenstiel skin incision was made with knife then carried through to the underlying layer of fascia with cautery. The fascia was opened in the midline with cautery and extended laterally using Tinoco scissors. Sandy clamps were applied to the superior aspect of the fascial incision which was tented up and the underlying rectus muscles dissected off using cautery. The Sandy clamps were then applied to the inferior aspect of the fascial incision which in a similar fashion was tented up and the underlying rectus muscles dissected off using cautery. The rectus muscles were then in the midline, the peritoneum identified, and entered sharply with Metzenbaum scissors. This incision was then extended superiorly and inferiorly with cautery. We had good visualization of the bladder inferiorly. The bladder peritoneum was then opened in the midline and extended laterally using Metzenbaum scissors. An Good retractor was placed in the abdominal cavity. A bladder flap was created digitally. Transverse incision was made through the uterine muscle to the amnion. This incision was then extended laterally using fingers traction. The amnion was entered sharply with knife. There was clear amniotic fluid. Baby A's 's head was then delivered atraumatically. This was followed by the anterior shoulder and the rest of the infant's body atraumatically. The cord was doubly clamped and cut and the was handed off to Dr. Chambers who assigned Apgars of 8 at 1 minute and 9 at 5 minutes. We then ruptured the amnion with knife of baby B. There was clear amniotic fluid. The 's head was then delivered followed by the anterior shoulder and the rest 's body atraumatically. Baby was vigorous and cried spontaneously. The cord was doubly clamped and cut and the oropharynx and nasopharynx were bulb suction. The was then handed off to Dr. Hoyos who assigned Apgars of 8 at 1 minute and 8 at 5 minutes. Using gentle traction on the cord and countertraction on the fundus I was able to easily deliver the placentas intact. They had a normal three-vessel cord. The uterus was then cleared of clots and debris . The uterine incision was then closed using running 0 Vicryl suture in a locked fashion. A second layer of the same suture was used to imbricate the first layer. The bladder peritoneum was then closed using running 2-0 Vicryl suture in a locked fashion. The gutters and cul-de-sac were then cleared of clots and debris . Once again hemostasis was assured. The Good retractor was then removed from the abdominal cavity. The peritoneum was grasped with Delmi bolaños
--- NOTE | 2021-09-09 08:39 | P.PN_ITS ---
[facility] Anesthesia Record Part I Intake, IV Amount: 1,000 Estimated blood loss (mL): 1,000 Urine output (mL): 75 Blood Pressure: 146/103 SaO2: 97 Pulse Rate: 68 Respiratory Rate: 16 Temperature: 98.9 F Patient is:: Awake, Stable Stable to PACU at:: 08:30
--- NOTE | 2021-09-09 08:39 | HMH.ANESCL ---
[facility] Anesthesia Checklist - Patient Identification Patient Identification: Arm Band - Structural Data Admitted From: Inpatient Planned Operative Procedure/s: Primary C/S Consent for Planned Operative Procedure(s) Verified: Yes Verified Documents: Surgical Consent, History and Physical - NPO Status Verified Time NPO: 00:00 - Additional verifications Anesthesia Reactions: No - Airway Assessment C-Spine Mobility Assessed: Yes (mp2) TMJ Mobility Assessed: Yes Dentition: Good Dentition - Neurological Assessment Level of Consciousness: Awake, Alert - Anesthesia Plan Anesthesia Risk discussed: Yes Anesthesia Plan: Verified ASA Class: II Anesthesia Type: Spinal (with Bilateral TAP Block) [facility] History I have reviewed the patient's past medical history: Yes Medical History: Reports:: Gastroesophageal Reflux Disease(GERD), Hypertension Denies:: Anxiety, Depression, Diabetes Mellitus Type 1, Hyperlipidemia, Migraine, MRSA, Seizures *Have you ever received a pneumonia vaccine?: No *Have you received a flu vaccine this season?: Yes Anesthesia experience/problems:: nac Laterality Cases: Bilateral: Tonsillectomy, Other Other Surgeries: Yes: Other. No: Amputation: No Fractures: No - *Social History Smoking Status: Never smoker Alcohol Intake: never Substance Use Type: denies use *Occupational Status:: employed Housing: house Household Members: family *Travel in the last 8 weeks: None - Psychiatric History Pschychiatric History:: Denies:: Anxiety, Depression Family Hx:: Diabetes, Heart Attack, Tuberculosis Para: 1
--- NOTE | 2021-09-09 08:42 | HMH.OBAPHP ---
OB - H&P: HPI Antepartum - History of Present Illness Chief complaint: Term , twin , Chronic hypertension, -induced hyp History of present illness: she is a 25-year-old 2 para 1 at 37 weeks gestational age. She is known to have twins.She is offered primary lower segment transverse section at term. - History of Present Criteria for establishing EDC:: LMP confirmed by 1st trimester US Ultrasounds: normal 1st trimester US, normal mid trimester US Obstetrical complications: preeclampsia, gestational hypertension - Labs Blood type: AB (+) positive Rubella: immune RPR/VDRL: nonreactive GBS status: negative HBsAG: negative [facility] History I have reviewed the patient's past medical history: Yes Medical History: Reports:: Gastroesophageal Reflux Disease(GERD), Hypertension Denies:: Anxiety, Depression, Diabetes Mellitus Type 1, Hyperlipidemia, Migraine, MRSA, Seizures *Have you ever received a pneumonia vaccine?: No *Have you received a flu vaccine this season?: Yes Anesthesia experience/problems:: nac Laterality Cases: Bilateral: Tonsillectomy, Other Other Surgeries: Yes: Other. No: Amputation: No Fractures: No - *Social History Smoking Status: Never smoker Alcohol Intake: never Substance Use Type: denies use *Occupational Status:: employed Housing: house Household Members: family *Travel in the last 8 weeks: None - Psychiatric History Pschychiatric History:: Denies:: Anxiety, Depression Family Hx:: Diabetes, Heart Attack, Tuberculosis Para: 1 Review of Systems - Review of Systems Review of systems:: pertinent systems reviewed and negative unless documented below Meds Home Medications Medication Instructions Recorded Confirmed Type prenat.vits,nicolás,bzj-droj-ynzjy 1 tab PO DAILY 12/01/17 09/09/21 History metformin 500 mg tablet 500 mg PO DAILY tab 07/29/21 09/09/21 History Ferrous Sulfate 325 mg PO DAILY 09/04/21 09/09/21 History Labetalol HCl 400 mg PO BID 09/04/21 09/09/21 History Metformin HCl 1,000 mg PO HS 09/09/21 09/09/21 History Allergies Allergy/AdvReac Type Severity Reaction Status Date / Time Latex, Natural Rubber Allergy Mild Verified 09/06/21 10:43 Penicillins Allergy Unknown Verified 09/06/21 10:43 OB - H&P: Exam - Physical Exam Vital signs: Temp Pulse Resp BP Pulse Ox 98.9 F 68 16 146/103 H 97 09/09/21 08:40 09/09/21 08:40 09/09/21 08:40 09/09/21 08:40 09/09/21 05:57 - Constitutional no acute distress - Routine HEENT Exam Head: Present: normocephalic Eye: Present: EOMI, PERRL ENT: Present: mucous membranes moist - Routine Neck Exam Present: supple, full ROM - Routine Respiratory Exam Absent: accessory muscle use (good air entry bilaterally), respiratory distress, wheezes, crackles - Routine Cardiovascular Exam Present: RRR. Absent: murmur - Routine Abdominal Exam Present: soft, normoactive bowel sounds. Absent: tenderness, distended, guarding - Routine Rectal Exam Patient deferred: visual exam, digital exam - Routine Exam Patient deferred: external exam, groin exam, perineal exam - Routine Extremities Exam Present: full ROM. Absent: cyanosis, edema - Routine Skin Exam Present: intact. Absent: cyanosis - Routine Neurological Exam Present: alert, oriented X3 - Routine Psychiatric Exam Present: normal affect OB - Results - Labs Labs: Urine 09/09/21 Range/Units 05:40 Urine Color Yellow (Yellow) Urine Appearance Cloudy (Clear) Urine pH 6.5 (5.0-8.5) Ur Specific [place] >= 1.030 (1.005-1.030) Urine Protein 1+ (Negative) Urine Glucose (UA) Negative (Negative) OB - A/P Antepartum (1) Chronic hypertension affecting Status: Acute (2) induced hypertension, antepartum Status: Acute (3) delivery delivered Status: Acute (4) Maternal obesity affecting , antepartum
[2021-09-09 08:54] LABS: POC Glucose,Bedside 94 (70-110)
--- NOTE | 2021-09-09 09:33 | SUR.PHASEI ---
Detailed report called to Lianne Davis RN @ 0908 am. Pt. doing well, reports no pain or discomfort at this time. Vital signs are stable.
--- NOTE | 2021-09-09 11:24 | HMH.PHAVTE ---
[facility] Pharmacy VTE Monitoring - Patient Demographics Admission date: 09/09/21 Report Date: 09/09/21 Time: 11:24 Allergies/Adverse Reactions: Patient Allergies Latex, Natural Rubber Allergy (Mild, Verified 09/06/21 10:43) Penicillins Allergy (Unknown, Verified 09/06/21 10:43) Height: 1.6 m Weight: 127.459 kg Patient Problems: Current Active Problems Chronic hypertension affecting (Acute) induced hypertension, antepartum (Acute) delivery delivered (Acute) Maternal obesity affecting , antepartum (Acute) Twin (Acute) - Prophylaxis VTE Prophylaxis Ordered?: Yes Types of VTE Prophylaxis: IPCS Thigh High Location of Applied Device: Bilateral Lower Extremeties
--- NOTE | 2021-09-09 11:33 | SUR.OPER ---
Baby A TOB @0750 Baby B TOB @0751
[2021-09-09 14:31] LABS: Microscopic,Cath URINE MICROSCOPIC (MICROSCOPIC)
[2021-09-09 15:29] LABS: Appearance,Urine/Cath CLEAR (Clear); Blood, Urine/Cath Negative (Negative); Color,Urine/Cath DK YELLOW (Yellow); Glucose,Urine/Cath (UA) Negative (Negative); Ketones,Urine/Cath Negative (Negative); Leukocyte Esterase,Cath Negative (Negative); Nitrate,Cath Negative (Negative); Protein,Urine/Cath TRACE (Negative); Specific Gravity, Urine/Cath >= 1.030 (1.005-1.030); Urobilinogen,Cath 0.2 EU/dl (0.2)
[2021-09-09 15:30] LABS: Bilirubin,Cath 1+ (Negative)
[2021-09-09 15:58] LABS: Hematocrit 31.2 % (37.0-47.0); Hemoglobin 10.3 g/dL (12.2-16.2)
[2021-09-09 16:17] LABS: Bacteria,Urine/Cath TRACE /lpf; CA Oxalate Crystals,Ur/Cath 4+ /lpf; WBC,Urine/Cath Occasional #/hpf (0-3)
[2021-09-10 01:09] VITALS: BP 131/61; PULSE 75; RESP 18; TEMP 36.7
[2021-09-10 04:20] VITALS: BP 136/81; PULSE 71; RESP 18; TEMP 36.6; O2SAT 98
[2021-09-10 06:50] LABS: Hematocrit 27.1 % (37.0-47.0)
[2021-09-10 07:01] LABS: Hemoglobin 9.1 g/dL (12.2-16.2)
--- NOTE | 2021-09-10 11:45 | HMH.ACPN2 ---
Internal Medicine - PN: Subj *Date: 09/10/21 *Time: 11:45 Interval history: She is 1 day post and continues to do very well. She is breast-feeding both twins. Her incision is clean and dry. Her lochia is normal. She denies any pain. Exam Vital signs and Labs for Last 24 Hours: Temp Pulse Resp BP Pulse Ox 97.8 F 71 18 136/81 98 09/10/21 04:20 09/10/21 04:20 09/10/21 04:20 09/10/21 04:20 09/10/21 04:20 Laboratory Results - last 24 hr 09/09/21 05:45: Blood Type AB Positive, Antibody Screen Negative, Crossmatch (AHG) See Detail 09/09/21 07:20: Urine Color Dk yellow, Urine Appearance Clear, Urine pH 6.0, Ur Specific [place] >= 1.030, Urine Protein Trace, Urine Glucose (UA) Negative, Urine Ketones Negative, Urine Blood Negative, Urine Nitrate Negative, Urine Bilirubin 1+ A, Urine Urobilinogen 0.2, Ur Leukocyte Esterase Negative, Urine RBC 10-20, Urine WBC Occasional, Ur Squamous Epith Cells 3-5, Calcium Oxalate Crystal 4+, Urine Bacteria Trace 09/09/21 15:50: Hgb 10.3 L, Hct 31.2 L 09/10/21 06:25: Hgb 9.1 L D, Hct 27.1 L I & O for Last 24 hours: Intake & Output 09/07/21 09/08/21 09/09/21 09/10/21 11:59 11:59 11:59 11:59 Intake Total 1050 / 1050 Output Total 75 / 75 Balance 975 / 975 Weight 281 lb Microbiology Reports for the Last 24 Hours: Microbiology 09/09/21 05:40 Urine,Clean Catch Urine Culture - Preliminary NO GROWTH AFTER 24 HOURS - Constitutional no acute distress - *Routine HEENT Exam Head: Present: normocephalic Eye: Present: EOMI, PERRL ENT: Present: mucous membranes moist Assessment and Plan (1) Chronic hypertension affecting Status: Acute Category: Medical Code(s): O10.919 - Unspecified pre-existing hypertension complicating , unspecified trimester (2) induced hypertension, antepartum Status: Acute Category: Medical Code(s): O13.9 - Gestational [-induced] hypertension without significant proteinuria, unspecified trimester (3) delivery delivered Status: Acute Category: Medical Code(s): O82 - Encounter for delivery without indication (4) Maternal obesity affecting , antepartum Status: Acute Category: Medical Code(s): O99.210 - Obesity complicating , unspecified trimester (5) Twin Status: Acute Qualifiers: Multiple gestation type: dichorionic and diamniotic Trimester: third trimester Qualified Code(s): O30.043 - Twin , dichorionic/diamniotic, third trimester Category: Medical Code(s): O30.009 - Twin , unspecified number of placenta and unspecified number of amniotic sacs, unspecified trimester - Assessment and plan all Dx Assessment and Plan for all problems:: She is doing very well. She continues to breast-feed. We will continue to monitor her blood pressure. We will plan to send her home in 48 hours.
--- NOTE | 2021-09-11 08:46 | P.PN_ITS ---
Internal Medicine - PN: Subj *Date: 09/11/21 *Time: 08:46 Interval history: She continues to do well. She is breast-feeding. Her lochia is normal. Her pain is well controlled. Exam Vital signs and Labs for Last 24 Hours: Temp Pulse Resp BP Pulse Ox 97.8 F 71 18 136/81 98 09/10/21 04:20 09/10/21 04:20 09/10/21 04:20 09/10/21 04:20 09/10/21 04:20 Laboratory Results - last 24 hr 09/09/21 05:45: Crossmatch (AHG) See Detail I & O for Last 24 hours: Intake & Output 09/08/21 09/09/21 09/10/21 09/11/21 11:59 11:59 11:59 11:59 Intake Total 1050 / 1050 Output Total 75 / 75 Balance 975 / 975 Weight 281 lb Microbiology Reports for the Last 24 Hours: Microbiology 09/09/21 05:40 Urine,Clean Catch Urine Culture - Final NO GROWTH AFTER 48 HOURS - Constitutional no acute distress - *Routine HEENT Exam Head: Present: normocephalic Eye: Present: EOMI, PERRL ENT: Present: mucous membranes moist Assessment and Plan (1) Chronic hypertension affecting Status: Acute Category: Medical Code(s): O10.919 - Unspecified pre-existing hypertension complicating , unspecified trimester (2) induced hypertension, antepartum Status: Acute Category: Medical Code(s): O13.9 - Gestational [- induced] hypertension without significant proteinuria, unspecified trimester (3) delivery delivered Status: Acute Category: Medical Code(s): O82 - Encounter for delivery without indication (4) Maternal obesity affecting , antepartum Status: Acute Category: Medical Code(s): O99.210 - Obesity complicating , unspecified trimester (5) Twin Status: Acute Qualifiers: Multiple gestation type: dichorionic and diamniotic Trimester: third trimester Qualified Code(s): O30.043 - Twin , dichorionic/diamniotic, third trimester Category: Medical Code(s): O30.009 - Twin , unspecified number of placenta and unspecified number of amniotic sacs, unspecified trimester - Assessment and plan all Dx Assessment and Plan for all problems:: She is doing very well. We will plan to send her home tomorrow.
[2021-09-12 08:11] VITALS: BP 151/75; PULSE 93; RESP 18; TEMP 36.7; O2SAT 98
--- NOTE | 2021-09-12 10:30 | HMH.OBDCSM ---
General - General Admission date:: 09/09/21 Discharge date: 09/12/21 HPI - History of Present Illness History of present illness: She is a 25-year-old 2 para 1 who was 37 weeks gestational age with twins. She was admitted for section. She has also had chronic hypertension with superimposed -induced hypertension. Hospital Course Hospital Course: She was admitted on September 09, 2021 for primary lower segment transverse section. She delivered to liveborn infants. Baby A was a liveborn male child weighing 6 pounds 5 ounces and he was 18-1/2 inches long. He had Apgars of 8 at 1 minute and 9 at 5 minutes. Baby B was a liveborn female child born at 7:51 AM on September 09, 2021. The baby weighed 5 pounds 15 ounces and was 18-1/2 inches long. She had Apgars of 8 at 1 minute and 8 at 5 minutes. She has done well and has remained afebrile throughout her hospitalization. She is eating and drinking and ambulating. She is breast-feeding. Her lochia is normal. She received a T AP block and her pain has been well controlled. Her blood pressure is stable. Her hemoglobin is slightly low at 9.1. She has AB+ blood, she is rubella immune and was group B streptococcus negative. She is discharged home to follow-up with me in approximately 2 weeks time. She will continue with her vitamins and iron. She was given a prescription for Percocet 5/325 number 20 tablets. 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 She was given the usual instructions with respect to limiting her activity, driving and sexual activity. She is given instructions with respect to wound care. Her condition on discharge is stable and improved. She will continue with her home medications including her blood pressure medicine. Rhogam Administration: Not Indicated Objective Vital signs: Temp Pulse Resp BP Pulse Ox 97.8 F 71 18 136/81 98 09/10/21 04:20 09/10/21 04:20 09/10/21 04:20 09/10/21 04:20 09/10/21 04:20 no acute distress - *Routine HEENT Exam Head: Present: normocephalic Eye: Present: EOMI, PERRL ENT: Present: mucous membranes moist DS: Diagnosis - Discharge Diagnosis (1) Chronic hypertension affecting Status: Acute (2) induced hypertension, antepartum Status: Acute (3) delivery delivered Status: Acute (4) Maternal obesity affecting , antepartum Status: Acute (5) Twin Status: Acute (6) Anemia, Status: Acute Discharge Plan - Patient Discharge Instructions ACTIVITY: No heavy lifting DIET: continue same diet Additional Instructions: NOTHING IN VAGINA FOR 6 WEEKS NO HEAVY LIFTING OR STRENUOUS ACTIVITY FOLLOW-UP WITH DR. DELEON ON 09/23/21 AT 11:00 Patient Instructions: Depression, Hemorrhage, DI for , DI for Pre-eclampsia, [facility] Post Discharge Instructions, Preventing the Spread of Coronavirus Discharge Instructions - Follow up Plan Follow up with: Sunil Deleon MD [Staff Physician] - 09/23/21 11:00 am Disposition: Home, Self-Care Condition at discharge:: Stable Home Medications: Home Medications Medication Instructions Recorded Confirmed Type prenat.vits,nicolás,orv-ohow-ybbqz 1 tab PO DAILY 12/01/17 09/09/21 History metformin 500 mg tablet 500 mg PO DAILY tab 07/29/21 09/09/21 History Ferrous Sulfate 325 mg PO DAILY 09/04/21 09/09/21 History Labetalol HCl 400 mg PO BID 09/04/21 09/09/21 History Metformin HCl 1,000 mg PO HS 09/09/21 09/09/21 History Oxycodone HCl/Acetaminophen 1 tab PO Q4-6H PRN #20 tablet 09/12/21 Rx [Percocet 5/325mg tablet] Prescriptions/Medication Reconciliation: New Oxycodone HCl/Acetaminophen [Percocet 5/325mg tablet] 1 tab PO Q4-6H PRN #20 tablet PRN Reason: Severe Pain Continued metformin 500 mg tablet 500 mg PO DAILY tab prenat.vits,nicolás,[id number]-onxnu 1 tab PO DAILY Labetalol H
== END 2021-09-12 10:30 | disposition home or self-care (01) | DRG 786 ==
PROVIDERS: Admitting Provider Nurse Practitioner Obstetrics & Gynecology; PCP Internal Medicine Adolescent Medicine; Visit Provider Nurse Practitioner Obstetrics & Gynecology
PROC: (CPT 59514; principal; 2021-09-09 07:30)
DX: O30.043 Twin pregnancy, dichorionic/diamniotic, third trimester (principal); O11.3 Pre-existing hypertension with pre-eclampsia, third trimester; O10.013 Pre-existing essential hypertension complicating pregnancy, third trimester; Z3A.37 37 weeks gestation of pregnancy; Z37.2 Twins, both liveborn; D64.9 Anemia, unspecified; O90.81 Anemia of the puerperium
CPT/HCPCS: 59514; 36415; 59025; 80305; 81001; 82962; 85014; 85018; 86850; 87086; 94761; C9290; C9803; G0283; J2405; U0003; U0005

== ENCOUNTER 2021-09-21 10:16 | Emergency (ER) | payer OTHER, SELFPAY ==
[2021-09-21 10:29] VITALS: BP 137/85; PULSE 84; RESP 17; TEMP 36.7; O2SAT 97; BMI 44.2
--- NOTE | 2021-09-21 10:47 | HMH.EDUTC ---
[facility] [place] Clinical Impression: Viral syndrome Disposition: Home, Self-Care Condition on Discharge: Good Instructions: DI for Viral Syndrome Additional Instructions: Drink plenty of fluids. Take tylenol for pain or fever. Follow up with your regular doctor. GO TO THE ER FOR ANY WORSENING SYMPTOMS Quarantine until you know the results of your covid-19 test. Notify your school or workplace of your results and follow their instructions regarding return to work/school. Referrals: Ryan Chambers MD [Primary Care Provider] - Time of Disposition: 11:28 Medical Decision Making - Medical Records Medical records reviewed: No: I reviewed the patient's medical records. - [place] Inquiry Pt receiving controlled substance: No Vital Signs: 09/21/21 10:29 09/21/21 11:35 Temperature 98.1 F 98.1 F Temperature Source Oral Pulse Rate 84 Pulse Rate [Left Radial] 84 Respiratory Rate 17 17 Blood Pressure 137/85 Blood Pressure [Right Arm] 137/85 Blood Pressure Mean [Right Arm] 102 02 Sat by Pulse Oximetry 97 - Lab Data Lab Results 09/21/21 10:25: Group A Strep Rapid Negative 09/21/21 11:01: Chlamy pneumoniae PCR Not detected, Adenovirus (PCR) Not detected, B. pertussis DNA (PCR) Not detected, Coronavirus OC43 (PCR) Not detected, Coronavirus HKU1 (PCR) Not detected, Coronavirus 229E (PCR) Not detected, SARS-CoV-2 (PCR) Not detected, Coronavirus NL63 (PCR) Not detected, Human Metapneumovir PCR Not detected, Influenza A (H1) PCR Not detected, Influ A (H1N1/09) PCR Not detected, Influenza A (H3) PCR Not detected, Influenza Type A (PCR) Not detected, Influenza Type B (PCR) Not detected, M. pneumoniae (PCR) Not detected, Parainfluenza 1 (PCR) Not detected, Parainfluenza 2 (PCR) Not detected, Parainfluenza 3 (PCR) Not detected, Parainfluenza 4 (PCR) Not detected, RSV (PCR) Not detected, Entero/Rhino (PCR) Not detected Orders (Tests/Meds): ORDERS Category Date Time Status Strep Screen Confirmation Stat Micro 09/21/21 10:25 [place] [facility] - General Stated complaint: head congestion, sore throat, swollen lyph nodes Time Seen by Provider: 09/21/21 10:47 Description of Symptoms (Recalled from Triage Doc. by RN): patient comes in today with complaints of swollen lymph nodes, sore throat, left ear ache, and a cough that has been going on for 2 days HEENT Symptoms (Recalled from RN notes): Yes Resp Symptoms (Recalled from RN notes): Yes Skin Symptoms (Recalled from RN notes): No MS Symptoms (Recalled from RN notes): No Functional Status (Recalled from RN notes): wnl - History of Present Illness Provider Complaint: She states that she has had a sore throat, chilling and feeling bad for the past 3 days. She has had a low grade temp. - Related Data Home Medications Medication Instructions Recorded Confirmed prenat.vits,nicolás,oqb-aczh-cmfvd 1 tab PO DAILY 12/01/17 09/21/21 Labetalol HCl 400 mg PO BID 09/04/21 09/21/21 Allergies Allergy/AdvReac Type Severity Reaction Status Date / Time Latex, Natural Rubber Allergy Mild Verified 09/21/21 10:32 Penicillins Allergy Unknown Verified 09/21/21 10:32 - Worker's Comp Is this a Worker's Comp case?: No [facility] History - Hepatitis A Screen Attestation statement:: This patient has been screened for Hepatitis A risk factors. I have reviewed the patient's past medical history: Yes Medical History: Reports:: Gastroesophageal Reflux Disease(GERD), Hypertension Denies:: Anxiety, Depression, Diabetes Mellitus Type 1, Hyperlipidemia, Migraine, MRSA, Seizures Laterality Cases: Bilateral: Tonsillectomy, Other Other Surgeries: Yes: Other. No: Amputation: No Fractures: No Comment: Adenoidectomy - Social History Smoking Status: Never smoker Alcohol Intake: never Substance Use Type: denies use Occupational Status: employed Housing: house Household Members: family - Psychiatric History Pschychiatric History:: Denies
[2021-09-21 11:10] LABS: Adenovirus,PCR Not Detected (NotDetected); Bordetella Pertussis Not Detected (NotDetected); Chlamydophila Pneumoniae, PCR Not Detected (NotDetected); Coronavirus 19, PCR Not Detected (NotDetected); Coronavirus 229E Not Detected (NotDetected); Coronavirus NL63 Not Detected (NotDetected); Coronavirus OC43 Not Detected (NotDetected); Coronovirus HKU1,PCR Not Detected (NotDetected); Human Metapneumovirus Not Detected (NotDetected); Influenza A, PCR Not Detected (NotDetected); Influenza AH1, 2009 Not Detected (NotDetected); Influenza AH1, PCR Not Detected (NotDetected); Influenza AH3,PCR Not Detected (NotDetected); Influenza B, PCR Not Detected (NotDetected); Mycoplasma Pneumoniae, PCR Not Detected (NotDetected); Parainfluenza 1, PCR Not Detected (NotDetected); Parainfluenza 2, PCR Not Detected (NotDetected); Parainfluenza 3, PCR Not Detected (NotDetected); Parainfluenza 4, PCR Not Detected (NotDetected); Respiratory Syncytial Virus Not Detected (NotDetected); Rhinovirus/Enterovirus Not Detected (NotDetected)
[2021-09-21 11:14] LABS: Strep Scrn Group A (Rapid) Negative (Negative)
[2021-09-21 11:35] VITALS: BP 137/85; PULSE 84; RESP 17; TEMP 36.7
== END 2021-09-21 11:36 | disposition home or self-care (01) ==
PROVIDERS: Emergency Provider Nurse Practitioner Family; PCP Internal Medicine Adolescent Medicine
DX: O26.899 Other specified pregnancy related conditions, unspecified trimester (principal); J02.9 Acute pharyngitis, unspecified; H92.02 Otalgia, left ear; O99.513 Diseases of the respiratory system complicating pregnancy, third trimester; O16.3 Unspecified maternal hypertension, third trimester; Z20.822 Contact with and (suspected) exposure to COVID-19; O99.119 Other diseases of the blood and blood-forming organs and certain disorders involving the immune mechanism complicating pregnancy, unspecified trimester; K21.9 Gastro-esophageal reflux disease without esophagitis; B34.9 Viral infection, unspecified; Z88.0 Allergy status to penicillin; Z82.49 Family history of ischemic heart disease and other diseases of the circulatory system; Z83.3 Family history of diabetes mellitus; Z83.1 Family history of other infectious and parasitic diseases
CPT/HCPCS: 87430; 87581; 87632; 87798; 99213; C9803; G0463; U0003; U0005

== ENCOUNTER → 2022-06-06 07:25 | Outpatient (CLI) | payer OTHER, SELFPAY ==
[2022-06-06 07:52] LABS: Basophils # 0.1 K/mm3 (0-0.2); Basophils % 0.8 % (0.1-2.0); Eosinophils # 0.2 K/mm3 (0.0-0.4); Eosinophils % 1.7 % (0.1-12.0); Hematocrit 35.5 % (37.0-47.0); Hemoglobin 11.2 g/dL (12.2-16.2); Lymphocytes # 3.3 K/mm3 (0.7-4.5); Mean Corpuscular HGB Conc 31.6 g/dL (31.8-35.4); Mean Platelet Volume 8.7 fl (7.4-10.4); Monocytes # 0.3 K/mm3 (0.1-1.0); Neutrophils # 6.1 K/mm3 (1.8-7.8); Neutrophils % 61.6 % (37.0-80.0); Platelet Count 354 K/mm3 (142-424); Red Blood Count 4.67 M/mm3 (4.20-5.40); Red Cell Distribution Width 14.9 % (11.5-17.5)
[2022-06-06 08:22] LABS: Hemoglobin A1C 5.5 % (4.0-6.0)
[2022-06-06 10:10] LABS: Alanine Aminotransferase 22 U/L (12-78); Albumin Level 4.5 g/dl (3.5-5.0); Albumin/Globulin Ratio 1.7 (1.1-1.8); Alkaline Phosphatase 92 U/L (38-126); Anion Gap 14.7 mEq/L (5-15); Aspartate Amino Transferase 23 U/L (14-36); Bilirubin,Total 0.4 mg/dl (0.2-1.3); Blood Urea Nitrogen 14 mg/dl (7-17); Calcium 8.6 mg/dl (8.4-10.2); Carbon Dioxide 23 mmol/L (22.0-30.0); Chloride 103 mmol/L (98-107); Chol/HDL Ratio 3.9 (1-3.5); Cholesterol 158 mg/dl (140-200); Estimated Glomerular Filt Rate 120 ml/min (>60); GFR (African American) 145 ML/MIN (>60); Globulin 2.6 g/dL (1.3-3.2); Glucose 116 mg/dl (74-100); HDL Cholesterol 41 mg/dl (40-60); Potassium 4.7 mmoL/L (3.5-5.1); Sodium 136 mmol/L (136-145); Total Protein,Serum 7.1 g/dl (6.3-8.2); Triglycerides 69 mg/dl (30-150); VLDL Cholesterol 14 mg/dL (0-40)
[2022-06-06 10:21] LABS: Direct LDL Cholesterol 98.05 mg/dL (100-129)
[2022-06-06 10:40] LABS: Thyroid Stimulating Hormone 1.62 uIU/mL (0.465-4.68)
== END ==
PROVIDERS: PCP Internal Medicine Adolescent Medicine; Visit Provider Nurse Practitioner Family
DX: Z00.00 Encounter for general adult medical examination without abnormal findings (principal); O24.415 Gestational diabetes mellitus in pregnancy, controlled by oral hypoglycemic drugs; Z87.59 Personal history of other complications of pregnancy, childbirth and the puerperium
CPT/HCPCS: 36415; 80053; 80061; 83036; 84443; 85025

== ENCOUNTER → 2022-12-09 14:35 | Outpatient (CLI) | payer OTHER, SELFPAY ==
[2022-12-09 16:53] LABS: HCG,Quantitative 304 mIU/ml (0-5.42)
[2022-12-11 10:44] LABS: Progesterone 15.9 ng/mL (.)
== END ==
PROVIDERS: PCP Internal Medicine Adolescent Medicine; Visit Provider Obstetrics & Gynecology
DX: N92.6 Irregular menstruation, unspecified (principal); Z32.00 Encounter for pregnancy test, result unknown
CPT/HCPCS: 36415; 84144; 84702

== ENCOUNTER → 2022-12-25 16:23 | Outpatient (CLI) | payer OTHER, SELFPAY ==
--- NOTE | 2022-12-25 | US_ITS ---
PROCEDURE: US OB <= 14 WK FETUS ADD GEST CLINICAL INDICATION: COMPARISON: No exams were available for comparison FINDINGS: Transvaginal sonographic images of the pelvis were obtained. From her last menstrual period she is 6weeks 1day. Two intrauterine gestational sacs are present with poles with a crown-rump length of 0.47cm correlating to gestational age of 6weeks 2days. heart tones are present in both sacs with an FHR of 123bpm. Yolk sacs are noted. The yolk sacs measure 3.4mm and 3.8 mm. The right ovary is seen and appears normal. The left ovary is seen and appears normal. There is trace fluid in the cul-de-sac. IMPRESSION: 1. Viable uterine twin . 2. She measures 6 weeks 2 days and this corresponds with her last menstrual period. 3. Due date will remain August 19, 2023. Dictated by: Sunil Deleon MD 12/25/2022 21:04 Sunil Deleon MD in [place] 12/25/2022 21:04
[2022-12-25 18:10] LABS: Basophils % 0.3 % (0.1-2.0); Eosinophils # 0.1 K/mm3 (0.0-0.4); Eosinophils % 0.4 % (0.1-12.0); Hematocrit 36.1 % (37.0-47.0); Hemoglobin 11.2 g/dL (12.2-16.2); Lymphocytes # 3.3 K/mm3 (0.7-4.5); Lymphocytes % 25.8 % (10-50); Mean Corpuscular HGB Conc 31.1 g/dL (31.8-35.4); Mean Corpuscular Hemoglobin 24.5 pg (27.0-31.2); Mean Corpuscular Volume 78.8 fl (81-99); Mean Platelet Volume 9.1 fl (7.4-10.4); Monocytes # 0.4 K/mm3 (0.1-1.0); Monocytes % 3.1 % (1.7-9.3); Neutrophils # 8.9 K/mm3 (1.8-7.8); Neutrophils % 70.3 % (37.0-80.0); Platelet Count 267 K/mm3 (142-424); Red Blood Count 4.58 M/mm3 (4.20-5.40); Red Cell Distribution Width 15.3 % (11.5-17.5); White Blood Count 12.6 K/mm3 (4.8-10.8)
[2022-12-27 11:17] LABS: Rapid Plasma Reagin Ab Titer Non Reactive titer (NonRea<1:1)
[2022-12-28 11:04] LABS: HIV Screen 4th Generation wRfx Non Reactive
[2022-12-28 11:05] LABS: Hepatitis B Surface Antigen Negative; Hepatitis C Antibody Non Reactive; Rubella Antibodies, IgG 1.34
[2022-12-29 22:59] LABS: Neisseria gonorrhoeae, NAA Negative (Negative)
== END ==
LOC: LAB 16:24
PROVIDERS: PCP Internal Medicine Adolescent Medicine; Visit Provider Obstetrics & Gynecology
DX: Z34.91 Encounter for supervision of normal pregnancy, unspecified, first trimester (principal); Z3A.01 Less than 8 weeks gestation of pregnancy
CPT/HCPCS: 36415; 76801; 76802; 85025; 86593; 86703; 86762; 86850; 87086; 87340; 87380; 87491; 87591; G0432

== ENCOUNTER → 2022-12-25 23:05 | Outpatient (CLI) | payer OTHER, SELFPAY | PROVIDERS: PCP Internal Medicine Adolescent Medicine; Visit Provider Obstetrics & Gynecology | DX: Z34.91 Encounter for supervision of normal pregnancy, unspecified, first trimester (principal) ==

== ENCOUNTER → 2023-02-18 07:26 | Outpatient (CLI) | payer OTHER, SELFPAY ==
[2023-02-18 08:42] LABS: Glucose,Fasting 102 mg/dl (74-100)
[2023-02-18 10:35] LABS: Glucose 1 Hour 177 mg/dL (74-100)
== END ==
PROVIDERS: PCP Internal Medicine Adolescent Medicine; Visit Provider Obstetrics & Gynecology
DX: Z34.92 Encounter for supervision of normal pregnancy, unspecified, second trimester (principal); Z3A.14 14 weeks gestation of pregnancy
CPT/HCPCS: 36415; 82951

== ENCOUNTER 2023-07-23 15:13 | Outpatient (CLI) | payer OTHER, SELFPAY ==
[2023-07-23 15:23] VITALS: BMI 46.4
--- NOTE | 2023-07-23 15:23 | US_ITS ---
PROCEDURE: US OB BIOPHYSICAL PROFILE CLINICAL INDICATION: twins, tachycardia COMPARISON: No exams were available for comparison FINDINGS: Transabdominal sonographic images of the uterus were obtained. From her established due date she is 37weeks 0 days with twins.. Twins appear to be dichorionic/diamniotic. The following parameters are obtained TWIN A: Viable Fetus in the BREECH presentation with and anterior placenta grade 2. Measurements: heart Rate = 149bpm Amniotic fluid index: MVP 4.53 cm. Qualitative AFV:2 Breathing movements: 2 Gross Body Movements: 2 Tone: 2 Biophysical profile score: 8 The following parameters are obtained TWIN B: Viable Fetus in the TRANSVERSE presentation with and fundal placenta grade 2. Measurements: heart Rate = 147bpm Amniotic fluid index: MVP 6.39 cm. Qualitative AFV:2 Breathing movements: 2 Gross Body Movements: 2 Tone: 2 Biophysical profile score: 8 IMPRESSION: 1. Viable twin . Fetus A is breech and fetus B is transverse. 2. Dichorionic/diamniotic. 3. Placenta for fetus A is anterior grade 2 and placenta for twin B is fundal grade 2. 4. The fluid around each fetus is normal. 5. Biophysical profile for both fetuses is 8/8 with good breathing movement and movement seen for both. 6. heart rates were in the normal range for both. Dictated by: Sunil Deleon MD 07/23/2023 17:05 Sunil Deleon MD in [place] 07/23/2023 17:05
[2023-07-23 15:39] VITALS: BMI 46.4
[2023-07-23 16:50] VITALS: BP 146/85; PULSE 88; RESP 18; TEMP 36.7; O2SAT 98
[2023-07-23] MEDS: LACTATED RINGERS 1000ML 1,000 ML 999 ML IV (16:52)
== END 2023-07-23 17:30 | disposition home or self-care (01) ==
LOC: OBOUT 15:14 → OB 15:15
PROVIDERS: PCP Internal Medicine Adolescent Medicine; Visit Provider Obstetrics & Gynecology
DX: O26.893 Other specified pregnancy related conditions, third trimester (principal); Z3A.36 36 weeks gestation of pregnancy
CPT/HCPCS: 76819; G0463

== ENCOUNTER 2023-07-29 05:13 | Inpatient (IN) | payer OTHER, SELFPAY ==
[2023-07-29] VITALS (8 sets, daily range): BP systolic 123–146; BP diastolic 63–78; PULSE 71–88; RESP 16–21; TEMP 36.4–36.8; O2SAT 98–99; BMI 46.4
[2023-07-29 06:16] LABS: Microscopic, Urine URINE MICROSCOPIC (MICROSCOPIC)
[2023-07-29 06:28] LABS: Appearance,Urine CLEAR (Clear); Bilirubin,Urine Negative (Negative); Blood, Urine Negative (Negative); Color,Urine YELLOW (Yellow); Glucose,Urine (UA) Negative (Negative); Ketones,Urine Negative (Negative); Leukocyte Esterase,Urine 1+ (Negative); Nitrate,Urine Negative (Negative); Protein,Urine Negative (Negative); Urobilinogen,Urine 0.2 EU/dl (0.2)
[2023-07-29 06:33] LABS: Chloride 109 mmol/L (98-107); Potassium 3.8 mmoL/L (3.5-5.1); Sodium 137 mmol/L (136-145)
[2023-07-29 06:35] LABS: Alanine Aminotransferase 19 U/L (12-78); Aspartate Amino Transferase 28 U/L (14-36); Blood Urea Nitrogen 11 mg/dl (7-17); Creatinine Clearance Estimated 99 mL/min (50-200); Estimated Glomerular Filt Rate 100 ml/min (>60); GFR (African American) 121 ML/MIN (>60)
[2023-07-29 06:36] LABS: Albumin Level 3.4 g/dl (3.5-5.0); Albumin/Globulin Ratio 1.2 (1.1-1.8); Alkaline Phosphatase 173 U/L (38-126); Anion Gap 8.8 mEq/L (5-15); Bilirubin,Total 0.4 mg/dl (0.2-1.3); Calcium 8.8 mg/dl (8.4-10.2); Carbon Dioxide 23 mmol/L (22.0-30.0); Globulin 2.8 g/dL (1.3-3.2); Glucose 93 mg/dl (74-100); Total Protein,Serum 6.2 g/dl (6.3-8.2)
[2023-07-29 06:38] LABS: Amphetamine/Metha Screen,Urine Negative ng/ml (<1000)
[2023-07-29 06:39] LABS: Barbiturates Screen,Urine Negative ng/ml (<200); Benzodiazepines Screen,Urine Negative ng/ml (<200)
[2023-07-29 06:40] LABS: Cannabinoid Screen,Urine Negative ng/ml (<50)
[2023-07-29 06:41] LABS: Cocaine Screen,Urine Negative ng/ml (<300); Methadone Screen,Urine Negative ng/ml (<300)
[2023-07-29 06:42] LABS: Bacteria,Urine 3+ /lpf; Mucus,Urine 1+ /lpf; Opiate Screen,Urine Negative ng/ml (<300); Squamous Epithelial Cell,Urine 20-50 #/hpf (0-5)
[2023-07-29 06:43] LABS: Phencyclidine Screen,Urine Negative ng/ml (<25)
[2023-07-29] MEDS: LACTATED RINGERS 1000ML 1,000 ML 250 ML IV (06:46)
[2023-07-29 06:53] LABS: Basophils # 0.1 K/mm3 (0-0.2); Basophils % 0.7 % (0.1-2.0); Eosinophils # 0.1 K/mm3 (0.0-0.4); Eosinophils % 0.7 % (0.1-12.0); Hematocrit 37.7 % (37.0-47.0); Hemoglobin 12.3 g/dL (12.2-16.2); Lymphocytes # 3.2 K/mm3 (0.7-4.5); Lymphocytes % 38.8 % (10-50); Mean Corpuscular HGB Conc 32.6 g/dL (31.8-35.4); Mean Corpuscular Hemoglobin 27.7 pg (27.0-31.2); Mean Corpuscular Volume 84.9 fl (81-99); Mean Platelet Volume 12.7 fl (7.4-10.4); Monocytes # 0.3 K/mm3 (0.1-1.0); Monocytes % 3.7 % (1.7-9.3); Neutrophils # 4.7 K/mm3 (1.8-7.8); Neutrophils % 56.2 % (37.0-80.0); Platelet Count 136 K/mm3 (142-424); Red Blood Count 4.44 M/mm3 (4.20-5.40); Red Cell Distribution Width 15.6 % (11.5-17.5); White Blood Count 8.3 K/mm3 (4.8-10.8)
[2023-07-29 07:06] LABS: Hemoglobin A1C 5.4 % (4.0-6.0)
[2023-07-29] MEDS: GENTAMICIN SULFATE 360 MG in 0.9 % SODIUM CHLORIDE 100 ML 109 MG IV (07:28)
[2023-07-29] MEDS: CLINDAMYCIN PHOSPHATE/D5W 900 MG/50 ML PIGGYBACK 100 MG IV (07:28)
--- NOTE | 2023-07-29 07:29 | EXP.HP ---
History of Present Illness *Admission Date: 07/29/23 *Reason for visit:: Repeat delivery and bilateral salpingectomy *History of present illness: Geeta Rodriguez is a 27-year-old -0-0-3 who presented to labor and delivery this morning for a scheduled repeat delivery with bilateral salpingectomy. This has been complicated by dichorionic diamniotic twin gestation, chronic hypertension, diabetes mellitus, and obesity. She has been followed by [facility]. On presentation patient endorsed good movement and denies any leakage of fluid or vaginal bleeding. AB+, antibody negative, rubella immune, hepatitis B negative, hepatitis C negative, RPR negative, HIV negative 1 hour GTT: 219 on 06/05/21 3hr GTT: 111/253/250/207 Hgb A1c on 06/06/22: 5.5 PFSH PFSH Disclaimer: The information contained in this section may have been updated after the patient was seen, as this information can be updated by other users. Medical History PCOS (polycystic ovarian syndrome) Surgical History History of delivery History of tonsillectomy and adenoidectomy Family History Other Cancer Coronary artery disease Diabetes Heart attack Hyperlipidemia Hypertension Tuberculosis Social History (Updated 07/29/23 @ 06:31 by Magi Jacobson RN) Smoking Status: Never smoker alcohol intake: never substance use type: denies use current occupational status: employed Travel in the last 8 weeks: None household members: family housing: house do you feel safe at home: Yes victim of physical abuse: No victim of emotional abuse: No victim of sexual abuse: No would you like helpful sources: No Review of Systems Review of Systems Review of systems (narrative): Review of Systems Constitutional: Denies fever, chills, and sweats Eyes: Denies vision change/ pain Respiratory: Denies cough and shortness of breath Cardiovascular: Denies chest pain and lightheadedness Gastrointestinal: denies abdominal pain. Denies nausea, vomiting. Genitourinary: Denies dysuria and incontinence Musculoskeletal: Denies shoulder pain and back pain Neurological: Denies change in speech or headaches Meds Home Medications and Allergies Home Medications Medication Instructions Recorded Confirmed Type prenat.vits,nicolás,els-vjje-rmskw 1 tab PO DAILY Supplement 12/01/17 07/29/23 History aspirin 81 mg tablet,delayed 81 mg PO DAILY 02/19/23 07/29/23 History release (Adult Aspirin Regimen) insulin glargine 100 unit/mL (3 15 unit SQ DAILY 06/11/23 07/29/23 History mL) subcutaneous pen (Lantus Solostar U-100 Insulin) insulin aspart 4 unit SQ TIDWMEAL 06/25/23 07/29/23 History (niacinamide)(U-100) 100 unit/mL(3 mL) subcutaneous pen (Fiasp FlexTouch U-100 Insulin) New Prescriptions to Start Prescriptions: Allergies Allergy/AdvReac Type Severity Reaction Status Date / Time Latex, Natural Rubber Allergy Mild Verified 07/28/23 15:39 Penicillins Allergy Unknown Verified 07/28/23 15:39 Exam Data for Last 24 hours Vital signs and Labs for Last 24 Hours: Temp Pulse Resp BP Pulse Ox O2 Del Method 98.3 F 88 21 138/76 99 Room Air 07/29/23 05:54 07/29/23 05:54 07/29/23 05:54 07/29/23 05:54 07/29/23 05:54 07/29/23 05:54 Laboratory Results - last 24 hr 07/29/23 05:30: Urine Color Yellow, Urine Appearance Clear, Urine pH 6.0, Ur Specific [place] 1.020, Urine Protein Negative, Urine Glucose (UA) Negative, Urine Ketones Negative, Urine Blood Negative, Urine Nitrate Negative, Urine Bilirubin Negative, Urine Urobilinogen 0.2, Ur Leukocyte Esterase 1+ A, Urine RBC 3-5, Urine WBC 10-20, Ur Squamous Epith Cells 20-50, Urine Bacteria 3+, Urine Mucus 1+, Urine Opiates Screen Negative, Urine Methadone Screen Negative, Ur Barbituates Screen Negative, Ur Phencyclidine Scrn Negative, Ur Amphetamines Screen Negative, U Benzodiazepines Scrn Negative, Urine Cocaine Screen Negative, U Marijuana (THC) Screen Negative 07/29/23 05:50: WBC 8.3, RBC 4.44, Hgb 12.3, Hct 37.7, MCV 84.9, MCH 27.7, MCHC 32.6, RDW 15.6, Plt Count 136 L, MPV 12.7 H, Neut % (Auto) 56.2, Lymph % (Auto) 38.8, [place] % (Auto) 3.7, Eos % (Auto) 0.7, Baso % (Auto) 0.7, Neut # (Auto) 4.7, Lymph # (Auto) 3.2, [place] # (Auto) 0.3, Eos # (Auto) 0.1, Baso # (Auto) 0.1, Sodium 137, Potassium 3.8, Chloride 109 H, Carbon Dioxide 23, Anion Gap 8.8, BUN 11, Creatinine 0.70, Estimated Creat Clear 99, Estimated GFR 100, Est GFR ( Amer) 121, Glucose 93, Hemoglobin A1c 5.4, Calcium 8.8, Total Bilirubin 0.4, AST 28, ALT 19, Alkaline Phosphatase 173 H, Total Protein 6.2 L, Albumin 3.4 L, Globulin 2.8, Albumin/Globulin Ratio 1.2, Crossmatch (AHG) See Detail I & O for Last 24 hours: Intake & Output 07/26/23 07/27/23 07/28/23 07/29/23 23:59 23:59 23:59 23:59 Weight 262 lb Narrative: General: patient is alert oriented in no acute distress and responds appropriately to questions. HEENT: NCAT, EOMI, moist mucous membranes, neck supple with full ROM Cardiovascular: RRR +S1/S2, no murmurs or rubs Pulmonary: Clear to auscultation bilaterally, nonlabored breathing, symmetric chest rise Abdominal: Gravid abdomen appropriate for gestation. No guarding, rebound, or tenderness noted. Extremities: trace edema, no tenderness or cyanosis noted Skin: Normal turgor, intact, warm. Negative for erythema, pallor, petechia, or lesions Neurologic: Negative for sensory or motor deficit Psychiatric: Normal affect, normal thought process, good judgment and insight, no depression or anxious mood appreciated. Constitutional Constitutional: no acute distress *Routine HEENT Exam Head: Present normocephalic and atraumatic Eye: Present EOMI, PERRL and normal accommodation; Absent conjunctival icterus, scleral injection, nystagmus or exophthalmos ENT: Present mucous membranes moist *Routine Neck Exam Neck: Present supple; Absent lymphadenopathy *Routine Respiratory Exam Respiratory: Present CTA bilaterally, normal respiratory effort, able to speak in complete sentences and symmetric chest movement; Absent accessory muscle use, decreased breath sounds, rales, respiratory distress, wheezes, distant breath sounds or diminished air movement *Routine Cardiovascular Exam Cardiovascular: Present RRR, Normal S1 and Normal S2; Absent murmur or gallop *Routine Abdominal Exam Abdominal: Present soft and normoactive bowel sounds; Absent tenderness, distended, rebound or guarding *Routine Rectal Exam Rectal:: deferred *Routine Genitalia Exam Genitalia:: normal female *Routine Extremities Exam Extremities: Absent cyanosis, clubbing or edema *Routine Skin Exam Skin: Present warm; Absent rash *Routine Neurological Exam Neurological: Present alert and oriented X3 Assessment and Plan *Assessment and plan (1) Dichorionic diamniotic twin gestation: Status: Acute Qualifiers: Trimester: third trimester Qualified Code(s): O30.043 - Twin , dichorionic/diamniotic, third trimester Category: Medical Code(s): O30.049 - Twin , dichorionic/diamniotic, unspecified trimester (2) Diabetes: Status: Acute Qualifiers: Diabetes mellitus type: type 2 Diabetes mellitus intermediate insulin use: without intermediate use Category: Medical Code(s): E11.9 - Type 2 diabetes mellitus without complications (3) Obesity, Class III, BMI 40-49.9 (morbid obesity): Status: Acute Category: Medical Code(s): E66.01 - Morbid (severe) obesity due to excess calories (4) History of delivery: Status: Acute Category: Surgical Code(s): Z98.891 - History of uterine scar from previous surgery (5) History of gestational diabetes: Status: Acute Category: Medical Code(s): Z86.32 - Personal history of gestational diabetes (6) Chronic hypertension affecting : Status: Acute Category: Medical Code(s): O10.919 - Unspecified pre-existing hypertension complicating , unspecified trimester (7) Anemia, : Status: Acute Category: Medical Code(s): O90.81 - Anemia of the puerperium (8) Encounter for sterilization: Status: Acute Category: Medical Code(s): Z30.2 - Encounter for sterilization Plan #Chronic hypertension -Not on medication -Blood pressure well-controlled -Continue following -LFTs and creatinine within normal limits #Type 2 diabetes mellitus -Controlled on 15 units of long-acting insulin at night with short acting insulin at mealtimes -We will discontinue her mealtime short acting insulin -Decrease her long-acting insulin to 5 units at night she will start this dose on 07/29/2023 -Accu-Cheks fasting and 2 hours postprandial with sliding scale insulin -Hemoglobin A1c this morning was 5.4 #37 weeks gestation #Previous delivery, desires repeat #Desires bilateral salpingectomy #Diamniotic dichorionic twin gestation -Admit to labor and delivery for a repeat delivery and bilateral salpingectomy -[place] genders- Monitor vitals - Hemoglobin: 12.3, Plt: 136 - Plan for spinal anesthesia - Anticipate delivery of twin infants #Gestational thrombocytopenia -Platelets at 136 -Recheck in the morning
--- NOTE | 2023-07-29 07:41 | HMH.PHAINT1 ---
Pharmacy Intervention Comments: HOME MEDICATION LIST VERIFIED VIA OUTSIDE PHARMACY
--- NOTE | 2023-07-29 09:10 | P.PNANES_ITS ---
[facility] Disclaimer: The information contained in this section may have been updated after the patient was seen, as this information can be updated by other users. Medical History PCOS (polycystic ovarian syndrome) Surgical History History of delivery History of tonsillectomy and adenoidectomy Family History Other Cancer Coronary artery disease Diabetes Heart attack Hyperlipidemia Hypertension Tuberculosis Social History (Updated 07/29/23 @ 06:31 by Magi Jacobson RN) Smoking Status: Never smoker alcohol intake: never substance use type: denies use current occupational status: employed Travel in the last 8 weeks: None household members: family housing: house do you feel safe at home: Yes victim of physical abuse: No victim of emotional abuse: No victim of sexual abuse: No would you like helpful sources: No [facility] Anesthesia Checklist Patient Identification Patient Identification: Arm Band Structural Data Admitted From: Home Planned Operative Procedure/s: Repeat C/S, BTL Consent for Planned Operative Procedure(s) Verified: Yes Verified Documents: Surgical Consent and History and Physical NPO Status Verified Time NPO: 00:00 Additional verifications Anesthesia Reactions: No Airway Assessment Mallampati Score:: Class II C-Spine Mobility Assessed: Yes TMJ Mobility Assessed: Yes Dentition: Good Dentition Neurological Assessment Level of Consciousness: Awake, Alert and Appropriate Anesthesia Plan Anesthesia Risk discussed: Yes Anesthesia Plan: Verified ASA Class: II Anesthesia Type: Spinal (With Bilateral TAP Block)
--- NOTE | 2023-07-29 09:10 | EXP.ANES.I ---
[facility] Anesthesia Record Part I Anesthesia Record I Intake, IV Amount: 2,000 Hydration: Adequate Estimated blood loss (mL): 450 Urine output (mL): 700 Blood Products used (#): none Blood Pressure: 138/76 SaO2: 98 Pulse Rate: 74 Airway Patency: Patent Respiratory Rate: 16 Temperature: 97.5 F Patient is:: Drowsy and Stable Stable to PACU at:: 09:00
--- NOTE | 2023-07-29 09:12 | P.OP_ITS ---
Date of procedure: 07/29/23 Pre-op Diagnosis:: 1. 37 weeks 0days gestation 2. Dichorionic diamniotic twin gestation, transverse presentation 3. Pregestational diabetes, insulin controlled 4. Chronic hypertension 5. History of delivery, desires repeat 6. Desires sterilization 7. Rh+ 8. Maternal obesity Post-op Diagnosis:: 1. 37 weeks 0days gestation 2. Dichorionic diamniotic twin gestation, transverse presentation 3. Pregestational diabetes, insulin controlled 4. Chronic hypertension 5. History of delivery, desires repeat 6. Desires sterilization 7. Rh+ 8. Maternal obesity Procedure performed:: Repeat Delivery with bilateral salpingectomy Surgeon:: Misa Salgado DO Graduate Student Instructor(s):: Roshan Rodrigues DO GRAPHIC ARTS TECHNICIAN:: Ronan Ford Anesthesia: spinal Estimated blood loss (mL): 450 Operative findings:: 1. Live viable Male infant: Undecided. Weight: Pending at time of dictation. Apgars 7 and 8 at 1 and 5 minutes respectively 2. Live viable Female : Undecided. Weight: 6lb6oz. Apgars 7 and 8 at 1 and 5 minutes respectively 3. Normal-appearing fallopian tubes and ovaries bilaterally Operative note:: Medications: IV gentamicin and clindamycin for infection prophylaxis Procedure explained in its entirety. The patient was counseled on the risks and benefits of section including bleeding, vascular injury, infection, and injury to the surrounding structures. Hemorrhage requiring life saving blood transfusion resulting in blood born viral infection or allergic reaction was explained and the patient consented to blood transfusion. Possible need for further operative measures prolonging recovery time and hospitalization reviewed to include hysterectomy. Procedure explained in its entirety and patient had no further questions. Consented to procedure. The patient was taken back to the operating room where adequate spinal anesthesia was obtained. Pneumatic compression stockings applied to lower extremities. Above listed medication were administered for infection prophylaxis. She was placed in the dorsal supine position Urinary catheter was placed and found to be draining clear urine. The patient was prepped and draped in sterile fashion. Anesthesia was tested and and found to be adequate. A Pfannenstiel skin incision was made with the scalpel. Subcutaneous bleeding vessels were cauterized with the bovie. The incision was taken down to the fascia with the bovie. The fascia was knicked in the midline and sharply extended laterally. The superior aspect of the fascia was grasped with Homar clamps and the rectus muscle was taken down with the Bovie. The rectus muscle was sharply dissected from the midline with Mayos. This process was repeated inferiorly. The rectus muscles were in the midline, peritoneum was identified and entered bluntly. A bladder flap was created with Metzenbaum scissors and [place] pickups. Good O retractor was placed and the bladder was noted to be out of the operative field. The lower uterine segment was easily identified, sharply incised, and entered bluntly with the surgeon's index finger. Incision was then extended in a superior and inferior fashion by blunt separation. Membranes were ruptured revealing clear fluid per A. The was noted to be in a transverse back down position. The infant's buttocks was able to be keratinized and delivered through the hysterotomy. The was in a adrianna breech position at delivery. feet were delivered once the infants scapulas at the hysterotomy. The infant was back anterior and rotated so that Lovesets maneuver could be performed bilaterally. The chin was flexed and the was delivered without difficulty. The mouth and nose were suctioned with a bulb. The umbilical cord was clamped and cut after greater than 1 minute was appreciated for delayed cord clamping. was taken to warmer for evaluation by the senior net web developer. Cord blood was collected and sent for routine evaluation. Membranes were ruptured revealing clear fluid per B. The was noted to be in a transverse position with the head to the maternal right. The feet were easily able to be grasped and delivered via Pinard maneuver through the hysterotomy. A blue towel was used to rotate the back anterior and delivered to the level of the shoulders. The infant was rotated so that Lo vesets maneuver could be performed bilaterally. The chin was flexed and the infant was delivered without difficulty. The mouth and nose were suctioned with a bulb. The umbilical cord was clamped and cut. was taken to warmer for evaluation by the senior net web developer. Cord blood was collected and sent for routine evaluation. The placentas delivered via fundal massage and found to be normal and intact. IV Pitocin was initiated. Inside of the uterus was gently cleared of blood and clots with lap sponge. The hysterotomy was closed with #1 Vicryl in a running locked fashion. A small [id number] stitch was placed at the right apex of the hysterotomy to make it hemostatic. The lower uterine segment was visualized and noted to be hemostatic. The ovaries and tubes were found to be normal. The posterior aspect of the uterus was cleared of blood clot with a damp lap sponge. The distal portion of the right fallopian tube was grasped with Payette clamp and elevated away from surrounding structures. The Enseal device was inserted over mesosalpinx inferior to right distal fallopian tube. Tissue was serially clamped, fulgurated, and transected until complete resection of fallopian tube. This process was repeated on the contralateral side. Hemostasis was noted bilaterally. There is no bleeding along the fulguration site. The tubes were passed off the operative field to be sent to pathology for further evaluation The gutters were inspected bilaterally and cleared of blood and clots with lap sponges. The uterine incision was reinspected and hemostasis noted. Good O retractor was removed. The peritoneum was reapproximated using a 2-0 Monocryl in a nonlocked running fashion. The fascia was closed in a running nonlocked fashion using 0 Vicryl x2 meeting right of midline. Fascia was noted as not having gaps or defects. The subcutaneous fat was closed with 2-0 Monocryl interrupted sutures x3. Skin was closed with the INSORB suture in a subcuticular fashion. Patient tolerated the procedure well and all counts were correct x3, per nursing. Condition: stable Disposition: PACU Specimens:: 1. Placenta x 2 2. Bilateral fallopian tubes Complications:: None
[2023-07-29] MEDS: OXYTOCIN/RINGERS LACTATE 30 UNITS/500 ML BAG 40 UNITS IV (09:30)
--- NOTE | 2023-07-29 09:54 | SUR.OPER ---
Baby a [id number] Baby B [id number] Cord blood PH not requested for either baby.
--- NOTE | 2023-07-29 10:03 | SUR.PHASEI ---
0930- detailed report given to george pepper in OB. VSS, dressings CDI, s/o at bedside. Pt at this time.
[2023-07-29] MEDS: ACETAMINOPHEN 500MG TAB 1000 MG PO ×2 (12:37→21:24)
[2023-07-29 14:31] LABS: Microscopic,Cath URINE MICROSCOPIC (MICROSCOPIC)
[2023-07-29 14:45] LABS: Appearance,Urine/Cath CLEAR (Clear); Bilirubin,Cath Negative (Negative); Blood, Urine/Cath Negative (Negative); Color,Urine/Cath YELLOW (Yellow); Glucose,Urine/Cath (UA) Negative (Negative); Ketones,Urine/Cath Negative (Negative); Leukocyte Esterase,Cath Negative (Negative); Nitrate,Cath Negative (Negative); Protein,Urine/Cath Negative (Negative); Urobilinogen,Cath 0.2 EU/dl (0.2)
[2023-07-29 15:05] LABS: Squamous Epithelial Ur./Cath Occasional #/hpf (0-5); WBC,Urine/Cath Occasional #/hpf (0-3)
[2023-07-29] MEDS: KETOROLAC 30MG/ML VIAL 30 MG IV (21:23)
[2023-07-30] MEDS: KETOROLAC 30MG/ML VIAL 30 MG IV (04:12)
[2023-07-30] MEDS: ACETAMINOPHEN 500MG TAB 1000 MG PO (04:13)
[2023-07-30 04:31] VITALS: BP 131/74; PULSE 70; RESP 20; TEMP 36.8; O2SAT 99
[2023-07-30 07:19] LABS: Hematocrit 36.9 % (37.0-47.0); Lymphocytes % 30.8 % (10-50); Mean Corpuscular HGB Conc 32.4 g/dL (31.8-35.4); Mean Corpuscular Hemoglobin 27.9 pg (27.0-31.2); Mean Corpuscular Volume 86.2 fl (81-99); Mean Platelet Volume 11.7 fl (7.4-10.4); Neutrophils % 64.5 % (37.0-80.0); Platelet Count 138 K/mm3 (142-424); Red Blood Count 4.28 M/mm3 (4.20-5.40); Red Cell Distribution Width 15.7 % (11.5-17.5); White Blood Count 10.4 K/mm3 (4.8-10.8)
[2023-07-30 07:20] LABS: Basophils % 0.3 % (0.1-2.0); Eosinophils # 0.1 K/mm3 (0.0-0.4); Eosinophils % 0.6 % (0.1-12.0); Lymphocytes # 3.2 K/mm3 (0.7-4.5); Monocytes # 0.4 K/mm3 (0.1-1.0); Monocytes % 3.8 % (1.7-9.3); Neutrophils # 6.7 K/mm3 (1.8-7.8)
--- NOTE | 2023-07-30 08:26 | P.PNANES_ITS ---
[facility] Anesthesia Record Part II Anesthesia Record Part II Discharge Time: 09:30 Destination: Obstetric PACU nurse assessment reviewed?: Yes Patient Condition:: Good Anesthesia Complications:: None Swallowing reflex intact?: Yes Airway Patency: Patent Cyanosis?: No Blood Pressure: 139/69 SaO2: 98 Respiratory Rate: 16 Pulse Rate: 71 Temperature: 97.6 F Mental Status: Alert & Oriented Pain level:: 0 Nausea and/or vomitting:: None Intake, IV Amount: 0 Hydration: Adequate
[2023-07-30 08:27] VITALS: BP 139/69; PULSE 71; RESP 16; TEMP 36.4; O2SAT 98
--- NOTE | 2023-07-30 09:01 | EXP.DC.SUM ---
General Admission date:: 07/29/23 Discharge date: 07/30/23 HPI HPI HPI: Geeta Rodriguez is a 27-year-old -0-0-3 who presented to labor and delivery this morning for a scheduled repeat delivery with bilateral salpingectomy. This has been complicated by dichorionic diamniotic twin gestation, chronic hypertension, diabetes mellitus, and obesity. She has been followed by [facility]. On presentation patient endorsed good movement and denies any leakage of fluid or vaginal bleeding. AB+, antibody negative, rubella immune, hepatitis B negative, hepatitis C negative, RPR negative, HIV negative 1 hour GTT: 219 on 06/05/21 3hr GTT: 111/253/250/207 Hgb A1c on 06/06/22: 5.5 Hospital Course Hospital Course Hospital Course: Geeta Rodriguez is a 27-year-old -0-0-5 postop day #1 from a repeat delivery with bilateral salpingectomy. has been complicated by dichorionic diamniotic twin gestation, chronic hypertension, diabetes mellitus, and obesity. Cameron Galvin, baby boy was transferred to NICU yesterday. Infant is doing very well and is weaning from oxygen requirements. They anticipate a short stay in an early discharge. -Reports pain is well-controlled -Reports she is tolerating p.o. without nausea or vomiting. -Reports her lochia is scant. -Ambulating, voiding difficulty or dysuria. Denies chest pain shortness of breath or pain in her legs. No further complaints at this time. Routine discharge instructions were reviewed in detail with the patient and she voiced understanding. All questions and concerns were addressed to her satisfaction Exam Data for Last 24 hours Vital signs and Labs for Last 24 Hours: Temp Pulse Resp BP Pulse Ox O2 Del Method 98.2 F 70 16 131/74 99 Room Air 07/30/23 04:31 07/30/23 04:31 07/30/23 08:27 07/30/23 04:31 07/30/23 04:31 07/30/23 04:31 Laboratory Results - last 24 hr 07/29/23 07:35: Urine Color Yellow, Urine Appearance Clear, Urine pH 7.0, Ur Specific [place] 1.010, Urine Protein Negative, Urine Glucose (UA) Negative, Urine Ketones Negative, Urine Blood Negative, Urine Nitrate Negative, Urine Bilirubin Negative, Urine Urobilinogen 0.2, Ur Leukocyte Esterase Negative, Urine RBC None, Urine WBC Occasional, Ur Squamous Epith Cells Occasional, Urine Bacteria None 07/30/23 06:43: WBC 10.4 D, RBC 4.28, Hgb 12.0 L, Hct 36.9 L, MCV 86.2, MCH 27.9, MCHC 32.4, RDW 15.7, Plt Count 138 L, MPV 11.7 H, Neut % (Auto) 64.5, Lymph % (Auto) 30.8, [place] % (Auto) 3.8, Eos % (Auto) 0.6, Baso % (Auto) 0.3, Neut # (Auto) 6.7, Lymph # (Auto) 3.2, [place] # (Auto) 0.4, Eos # (Auto) 0.1, Baso # (Auto) 0.0 I & O for Last 24 hours: Intake & Output 07/27/23 07/28/23 07/29/23 07/30/23 23:59 23:59 23:59 23:59 Intake Total 1999 / 1999 0 / 0 Output Total 1650 / 1650 Balance 350 / 350 0 / 0 Weight 262 lb Narrative: General: patient is alert oriented in no acute distress and responds appropriately to questions. Appears to be in minimal pain. Sitting up in the bed and doing well HEENT: NCAT, EOMI, moist mucous membranes, neck supple with full ROM Cardiovascular: RRR +S1/S2, no murmurs or rubs Pulmonary: Clear to auscultation bilaterally, nonlabored breathing, symmetric chest rise Abdominal: Fundus below the umbilicus, firm, and tenderness appropriate for the period. Extremities: trace edema, no tenderness or cyanosis noted Skin: Normal turgor, intact, warm. Negative for erythema, pallor, petechia, or lesions. Skin incision covered with dressing. no bleeding or signs of infection noted Neurologic: Negative for sensory or motor deficit Psychiatric: Normal affect, normal thought process, good judgment and insight, no depression or anxious mood appreciated. Constitutional Constitutional: no acute distress *Routine HEENT Exam Head: Present normocephalic Eye: Present EOMI and PERRL ENT: Present mucous membranes moist *Routine Neck Exam Neck: Present supple; Absent lymphadenopathy *Routine Respiratory Exam Respiratory: Present CTA bilaterally *Routine Cardiovascular Exam Cardiovascular: Present RRR *Routine Abdominal Exam Abdominal: Present soft and normoactive bowel sounds; Absent tenderness *Routine Extremities Exam Extremities: Absent cyanosis, clubbing or edema *Routine Skin Exam Skin: Present warm; Absent rash *Routine Neurological Exam Neurological: Present alert and oriented X3 Results Data Completed and Pending Labs on day of discharge: Labs from last 24 hours 07/30/23 07/29/23 06:43 07:35 WBC 10.4 D RBC 4.28 Hgb 12.0 L Hct 36.9 L MCV 86.2 MCH 27.9 MCHC 32.4 RDW 15.7 Plt Count 138 L MPV 11.7 H Neut % (Auto) 64.5 Lymph % (Auto) 30.8 [place] % (Auto) 3.8 Eos % (Auto) 0.6 Baso % (Auto) 0.3 Neut # (Auto) 6.7 Lymph # (Auto) 3.2 [place] # (Auto) 0.4 Eos # (Auto) 0.1 Baso # (Auto) 0.0 Urine Color Yellow Urine Appearance Clear Urine pH 7.0 Ur Specific [place] 1.010 Urine Protein Negative Urine Glucose (UA) Negative Urine Ketones Negative Urine Blood Negative Urine Nitrate Negative Urine Bilirubin Negative Urine Urobilinogen 0.2 Ur Leukocyte Esterase Negative Urine RBC None Urine WBC Occasional Ur Squamous Epith Cells Occasional Urine Bacteria None DS: Diagnosis Discharge Diagnosis (1) Dichorionic diamniotic twin gestation: Status: Acute Code(s): O30.049 - Twin , dichorionic/diamniotic, unspecified trimester Qualifiers: Trimester: third trimester Qualified Code(s): O30.043 - Twin , dichorionic/diamniotic, third trimester (2) Diabetes: Status: Acute Code(s): E11.9 - Type 2 diabetes mellitus without complications Qualifiers: Diabetes mellitus senior care insulin use: without installment account checker use Diabetes mellitus type: type 2 (3) Obesity, Class III, BMI 40-49.9 (morbid obesity): Status: Acute Code(s): E66.01 - Morbid (severe) obesity due to excess calories (4) History of delivery: Status: Acute Code(s): Z98.891 - History of uterine scar from previous surgery (5) History of gestational diabetes: Status: Acute Code(s): Z86.32 - Personal history of gestational diabetes Problem details: Discussed taking 5 units of insulin at night and checking her blood sugars. She will follow-up in 1 week to review her blood sugars and for a blood pressure check Hemoglobin: 12.3-->12.0 Thrombocytopenia: 136--> 138 Breast-feeding Bilateral salpingectomy for contraception (6) Chronic hypertension affecting : Status: Acute Code(s): O10.919 - Unspecified pre-existing hypertension complicating , unspecified trimester (7) Anemia, : Status: Acute Code(s): O90.81 - Anemia of the puerperium (8) Encounter for sterilization: Status: Acute Code(s): Z30.2 - Encounter for sterilization Meds Home Medications and Allergies Home Medications Medication Instructions Recorded Confirmed Type prenat.vits,nicolás,btk-hjqv-hjlsa 1 tab PO DAILY Supplement 12/01/17 07/29/23 History acetaminophen 500 mg tablet 500 mg PO Q6H PRN fever #30 tabs 07/30/23 Rx ibuprofen 800 mg tablet 800 mg PO Q8H PRN pain #60 tabs 07/30/23 Rx insulin glargine 100 unit/mL (3 5 unit (0.05 mL) SQ DAILY #15 mL 07/30/23 Rx mL) subcutaneous pen (Lantus Solostar U-100 Insulin) oxycodone 5 mg tablet 5 mg PO Q8H PRN pain #24 tabs 07/30/23 Rx sennosides 8.6 mg tablet (Senna 8.6 mg PO BIDP PRN Constipation 07/30/23 Rx Lax) #60 tabs simethicone 125 mg tablet 125 mg PO DAILY PRN abdominal 07/30/23 Rx distention #60 tabs New Prescriptions to Start Prescriptions: acetaminophen Misa Salgado ibuprofen Misa Salgado insulin glargine [Lantus Solostar U-100 Insulin] Misa Salgado oxycodone Misa Salgado sennosides [Senna Lax] Misa Salgado simethicone Misa Salgado Allergies Allergy/AdvReac Type Severity Reaction Status Date / Time Latex, Natural Rubber Allergy Mild Verified 07/28/23 15:39 Penicillins Allergy Unknown Verified 07/28/23 15:39 Discharge Plan Disposition Patient Disposition: Home, Self-Care Discharge Order Discharge Orders: Discharge Order (Routine); Ordered 07/30/23 Ordered By: Misa Salgado Follow up Plan Follow up with: Misa Salgado DO [Staff Physician] - 1 week Prescriptions/Medication Reconciliation: New acetaminophen 500 mg tablet 500 mg PO Q6H PRN (Reason: fever) Qty: 30 3RF sennosides [Senna Lax] 8.6 mg Tablet 8.6 mg PO BIDP PRN (Reason: Constipation) Qty: 60 2RF ibuprofen 800 mg tablet 800 mg PO Q8H PRN (Reason: pain) Qty: 60 2RF oxycodone 5 mg tablet 5 mg PO Q8H PRN (Reason: pain) Qty: 24 0RF simethicone 125 mg tablet 125 mg PO DAILY PRN (Reason: abdominal distention) Qty: 60 2RF Continued prenat.vits,nicolás,dcl-myks-ewmbu tablet 1 tab PO DAILY Changed insulin glargine [Lantus Solostar U-100 Insulin] 100 unit/mL (3 mL) insulin pen 5 unit SQ DAILY Qty: 15 0RF Discontinued aspirin [Adult Aspirin Regimen] 81 mg tablet,delayed release (DR/EC) 81 mg PO DAILY Fiasp FlexTouch U-100 Insulin 100 unit/mL (3 mL) insulin pen 4 unit SQ TIDWMEAL Patient Comments: INJECT 4 UNITS SUBCUTANEOUSLY THREE TIMES DAILY with meals DIRECTED Problem Reconciliation Problems Reviewed?: Yes Patient Discharge Instructions ACTIVITY: Continue current activity DIET: regular diet Additional Instructions: Congratulations on the delivery of your sweet babies, Hali and Cameron. It is my privilege to be your doctor and I am so thankful I could be a part of your special day. Discharge: 1. Take 800 mg Ibuprofen every 8 hours as needed for pain. You can also take 500-1000 mg of Tylenol in between doses, every 6-8 hours. Use prescription pain medicine for pain you feel in between 8 hour interval. -No driving while taking narcotic pain medications. In order to drive you should be able to slam on the brakes without significant abdominal pain. 2. Wean from prescription pain medicine first. Do not drive while taking it. 3. Prescription pain medicine can make you constipated. Colace can be taken 1-2 times per day as you need. Make sure to drink at least 8 cups of water per day. 4. Iron supplements can make you constipated. Colace can be taken 1-2 times per day as you need. You can take iron tablets every other day if constipation is too bad. 5. Nothing in the vagina for 6 weeks - no sex, douching, tampons. No tub baths 6. Do not lift greater than 15 pounds for 6 weeks, this is the equivalent of 2 gallons of milk. 7. Reasons to return to L&D or call On-Call doctor - fever (greater than 100.4) - heavy vaginal bleeding (soaking through 1 pad in less than 2 hours or passing clots that are egg sized) - vaginal discharge (malodorous and/or purulent) - bleeding or discharge from her incision - severe headaches, leg tenderness/edema, or any other symptoms that warrant immediate medical attention. 8. depression/blues - Normal to feel anxious/overwhelmed for first 2 weeks - Talk to your doctor if: anxiety lasts over 2 weeks, trouble bonding with baby, withdrawing from other family members, thoughts of harming yourself or others Blood pressure and preeclampsia instructions 1. Please take your blood pressure twice daily. 2. Please call if greater than 2 values are higher than: 150 systolic (the top number) or 100 diastolic (the bottom number). 3. Please go to the emergency room or labor and delivery triage if any value is higher than: 160 systolic (the top number) or 110 diastolic (the bottom number). 4. Please call if unrelenting headache (does not go away with rest or Tylenol or ibuprofen), changes in vision (spots, floaters, flashes of light), chest pain, shortness of breath, or right upper quadrant (liver) abdominal pain. Misa Salgado DO [facility] [phone] *Nothing in the Vagina for 6 weeks* *No strenuous activity* *No heavy lifting* *No tub baths until okay's by MD* Providers Primary Care Provider: Ryan Chambers Admlanette Provider: Misa Salgado Attending Provider: Misa Salgado
[2023-07-30 09:59] VITALS: BP 148/68; PULSE 74; RESP 18; TEMP 36.7; O2SAT 99
== END 2023-07-30 10:55 | disposition home or self-care (01) | DRG 783 ==
PROVIDERS: Admitting Provider Obstetrics & Gynecology; PCP Internal Medicine Adolescent Medicine; Visit Provider Obstetrics & Gynecology
PROC: 10D00Z1 Extraction of Products of Conception, Low, Open Approach (ICD-10-PCS; CPT 59514; principal; 2023-07-29 07:30)
DX: O34.211 Maternal care for low transverse scar from previous cesarean delivery (principal); O24.12 Pre-existing type 2 diabetes mellitus, in childbirth; O99.12 Other diseases of the blood and blood-forming organs and certain disorders involving the immune mechanism complicating childbirth; Z3A.37 37 weeks gestation of pregnancy; Z79.4 Long term (current) use of insulin; Z37.2 Twins, both liveborn; D75.839 Thrombocytosis, unspecified; Z30.2 Encounter for sterilization; O30.043 Twin pregnancy, dichorionic/diamniotic, third trimester
CPT/HCPCS: 59514 ×2; 58700; 36415; 59025; 80053; 80307; 81001; 83036; 85025; 86850; 87086; 94761; C9290; G0283; J2405

== ENCOUNTER 2024-12-21 07:04 | Outpatient (CLI) | payer OTHER, SELFPAY ==
--- OUTSIDE RECORDS SUMMARY | 2024-07-09 17:30 | XMS_ITS ---
Author Organization [facility] Address [address] [facility] [address] [place] [address] Care Team Providers Care Manager Of Compensation Name Role Phone Ne Thomas Primary Care Provider [phone] Unavailable Unavaila ble Migration, Provider Unavailable Unavailable Allergies Allergen (clinical drug ingredient) Drug/Non Drug Allergy documented on EMR Reaction Allergy Type Onset Date Status Latex LATEX (uncoded) skin irritation Allergy Active Penicillin rash Drug Allergy Active [facility] Encounter Medications Medication SIG (Take, Route, Frequency, Duration) Notes Start Date End Date Status metFORMIN HCl 500 MG 1 tab(s) orally onc e daily with a meal; Duration: 90 days 06/10/2022 Active buPROPion HCl ER (XL) 150 MG 1 tab(s) orally every 24 hours; Duration: 90 days 06/10/2022 Active Encounters Encounter Location Date Provider Diagnosis [facility] [address] [facility] [address] [place] [address] 07/09/2024 Provider Migration PCOS (polycystic ovarian syndrome) E28.2 Assessments Encounter Date Diagnosis (ICD Code) Assessment Notes Treatment Notes Treatment Clinical Notes Section Notes 07/09/2024 PCOS (polycystic ovarian syndrome) (ICD-10 - E28.2) Plan Of Treatment Medication Medication Name Sig Start Date Stop Date Notes metFORMIN HCl 500 MG 1 tab(s) orally onc e daily with a meal; Duration: 90 days 06/10/2022 buPROPion HCl ER (XL) 150 MG 1 tab(s) or ally every 24 hours; Duration: 90 days 06/10/2022 Progress Notes * Zoë LINDSEYaDOB:1995 (28 yo F)Acc No.[id number]:07/09/2024 Patient: Geeta VIEIRA Provider: Kezia Liao :1995 A ge:28 Y S ex:Female Date:07/09/2024 Address:[facility] [address], [facility] [id number] Pcp:Ne Thomas Subjective: * Chief Complaints: * 1 . Multum To Medispan Conversion Encounter. * Medical History: * Allergies: P enicillin: rash, LATEX: skin irritation. Objective: * Vitals: Assessment: * Assessment: 1. P COS (polycystic ovarian syndrome) - E28.2 (Primary) Plan: * Treatment: * * Electronic signature of Prov ider Migration on 12/21/2024 at 07:09 AM EDT Sign off status: Pending * Provider: Kezia rosenthal Migration Date: 0 07/09/2024 Generated for Benigno reyna/Jennifer/Orensmitting on: 0 12/21/2024 07:09 AM EDT
--- OUTSIDE RECORDS SUMMARY | 2024-12-14 10:15 | XMS_ITS ---
Author Organization [facility] Address [address] [place] [address] Care Team Providers Care Social Welfare Research Worker Name Role Phone Maday Thomas Primary Care Provider [phone] THOMAS Unavailable Unavaila ble Allergies Allergen (clinical drug ingredient) Drug/Non Drug Allergy documented on EMR Reaction Allergy Type Onset Date Status Latex LATEX (uncoded) skin irritation Allergy Active Penicillin rash Drug Allergy Active REASON FOR VISIT Annual Wellness, Med check Medications Medication SIG (Take, Route, Frequency, Duration) Notes Start Date End Date Status buPROPion HCl ER (XL) 150 MG 1 tablet in the morning Orally Once a day; Duration: 30 days 12/14/2024 Active Probiotic - as directed Orally Active Social History Tobacco Use: Social History Observation Description Date Details (start date - stop date) Never Smoker NA - NA Smoking: Question Answer Notes Are you a: nonsmoker Problems Problem Type SNOMED Code ICD Code Onset Dates Problem Status W/U Status Risk Notes Problem History of gestational diabetes mellitus (808990391) Hx gestational diabetes (Z86.32) Active confirmed Problem Obese class II (793256445605423 ) BMI 35.0-35.9,adult (Z68.35) Active confirmed Problem Murmur (104310744) Murmur (R01.1) Active confirmed Vital Signs Temperature 98 degrees Fahrenheit 12/14/2024 Blood pressure systolic 118 mm Hg 12/15/19 25 Blood pressure diastolic 72 mm Hg 025 Heart Rate 84 /min 12/14/2024 Height 5 ft 3 in in 12/14/2024 Weight 203 lbs 12/14/2024 BMI 35.96 kg/m2 12/14/2024 Encounters Encounter Location Date Provider Diagnosis [address] [address] 12/14/2024 Maday Thomas Routine medical exam Z00.00 ; Irritability R45.4 ; PCOS (polycystic ovarian syndrome) E28.2 ; Hx gestational diabetes Z86.32 ; BMI 35.0-35.9,adult Z68.35 and Murmur R01.1 Assessments Encounter Date Diagnosis (ICD Code) Assessment Notes Treatment Notes Treatment Clinical Notes Section Notes 12/14/2024 Routine medical exam (ICD-10 - Z00.00) Well Visit, Ages 18 to 65: Care Instructions material was published 12/14/2024 Irritability (ICD-10 - R45.4) Likely multifactoral. Has done very well on wellbutrin in the past. Discussed rationale for pharmacotherapy, and discussed MOA of med. Discussed time course of expected improvements, and discussed side effect of nausea, sexual dysfunction and mental status changes - and need for urgent evaluation if agitation occurs. Discussed need for f/u in office. 12/14/2024 PCOS (polycystic ovarian syndrome) (ICD-10 - E28.2) Encouraged follow-up with gynecology to discuss her menstrual symptoms, IUD might be a good option for her 12/14/2024 Hx gestational diabetes (ICD-10 - Z86.32) 12/14/2024 BMI 35.0-35.9,adult (ICD-10 - Z68.35) She is on an excellent job with weight loss, continue efforts. Hopefully her schedule will change such that it allows her to return to the gym which was a good emotional release for her previously. 12/14/2024 Murmur (ICD-10 - R01.1) No prior echo. She has been told this once before, about 4 years ago. Completely asymptomatic from a cardiovascular standpoint. No recommendation for imaging at this time but return precautions reviewed Plan Of Treatment Medication Medication Name Sig Start Date Stop Date Notes buPROPion HCl ER (XL) 150 MG 1 tablet in the morning Orally Once a day; Duration: 30 days 12/14/2024 Treatment Notes Assessment Notes Routine medical exam Well Visit, Ages 18 to 65: Care Instructions material was published Pending Test Test Name Order Date M-Complete Blood Count Auto Diff 025 M-Comprehensive Metabolic Panel 12/15/19 25 M-Hemoglobin A1C 12/14/2024 M-Lipid Panel 12/14/2024 M-Thyroid Stimulating Hormone 12/14/2024 M-Vitamin B12 12/14/2024 M-Vitamin D 25 Hydroxy 12/14/2024 Next Appt Details Follow Up: 6 Weeks, Reason: Progress Notes * Zoë LINDSEYaDOB:1995 (28 yo F)Acc No.[id number]:12/14/2024 Progress Notes Patient: Geeta VIEIRA Provider: SHELLEY Ma :1995 A ge:28 Y S ex:Female Date:12/14/2024 Address:[facility] [address], [place], [id number] Subjective: * Chief Complaints: * 1 . Annual Wellness, Med check. * HPI: jermaine en: presents today for annual exam. her only concern is some increase in irritability, more emotional than usual, difficulty focusing and lack of motivation. Has taken wellbutrin previously and tolerated very well. 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 Menstrual cycles have gotten heavier and more painful. BTL, not on any sort of control for menstrual cycle control. Due to see TEMPLATE CHECKER. Still doing very well with weight loss/maintaining. 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 * ROS: R ESPIRATORY: Reviewed, No Symptoms Reported: Y es. C ARDIOLOGY: Reviewed, No Symptoms Reported: Y es. C ONSTITUTIONAL: Reviewed, No Symptoms Reported: Y es. D ERMATOLOGY: Reviewed, No Symptoms Reported: Y es. G ASTROENTEROLOGY: no V omiting. n o A bdominal pain. n o D iarrhea. C onstipation y es. P SYCHOLOGY: See HPI Y es. U ROLOGY: Reviewed, No Symptoms Reported: Y es. * Medical History: G estational diabetes. * Surgical History: T and A 1998, Child 09/2021, tubal ligation . * Hospitalization/Major Diagno stic Procedure: C hild 04/2019, Child 09/2021. * Family History: F ather: alive. M other: alive. P aternal Grand Father: alive, diagnosed with Heart Disease. P aternal Grand Mother: alive, diagnosed with Diabetes. M aternal Grand Father: alive, early dementia. M aternal Grand Mother: , Alzheimer's dementia, diagnosed with Diabetes. P aternal aunt: alive. M aternal uncle: alive. Aidan austin: alive. 2 son(s) , 1 daughter(s) . . * Social History: S moking A re you a: n onsmoker. R ecreational drug use: no. Exercise: yes. Home smoke detector use: yes. Caffeine: yes, frequency:coffee. Living Will: No. Alcohol: no. Sexually active: yes. Travel outside [place]: no. 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 * Medications: T aking Probiotic - Tablet Delayed Release as directed Orally , Discontinued metFORMIN HCl 500 MG Tablet 1 tab(s) orally once daily with a meal , Discontinued buPROPion HCl ER (XL) 150 MG Tablet Extended Release 24 Hour 1 tab(s) orally every 24 hours , Medication List reviewed and reconciled with the patient * Allergies: P enicillin: rash, LATEX: skin irritation. Objective: * Vitals: N urse: dw, Pain: 0, Temp: 98, RR: 18, HR: 84, BP: 118/72, Ht: 5 ft 3 in, Wt: 203, BMI:35.96. * Examination: G eneral Examination: General P leasant and Cooperative, NAD on RA,. Oral cavity: M oist membranes. Heart: R egular Rate and Rhythm, 1/6 systolic murmur at mitral area. Lungs: L CTAB, No wheezes, crackles or rhonchi, Good air movement,. Abdomen: S oft, NTND, BSNA, No organomegaly or peritoneal signs.. Skin: w ithout acute rashes. Peripheral pulses: n ormal (2+) bilaterally. Extremities: n o clubbing, no edema,. neck s upple,, no thyromegaly,, no lymphadenopathy,. Psych N ormal Mood/Affect. Assessment: * Assessment: 1. R outine medical exam - Z00.00 (Primary) 2 . I rritability - R45.4 ? 3 . P COS (polycystic ovarian syndrome) - E28.2 4 . H x gestational diabetes - Z86.32 5 . B WI 35.0-35.9,adult - Z68.35 6 . M urmur - R01.1 Plan: * Treatment: 2. I rritability Start buPROPion HCl ER (XL) Tablet Extended Release 24 Hour, 150 MG, 1 tablet in the morning, Orally, Once a day, 30 days, 30 Tablet, Refills 1. Clinical Notes: Likely multifactoral. Has done very well on wellbutrin in the past. Discussed rationale for pharmacotherapy, and discussed MOA of med. Discussed time course of expected improvements, and discussed side effect of nausea, sexual dysfunction and mental status changes - and need for urgent evaluation if agitation occurs. Discussed need for f/u in office. 3. P COS (polycystic ovarian syndrome) L AB: M-Complete Blood Count Auto Diff L AB: M-Comprehensive Metabolic Panel L AB: M-Hemoglobin A1C L AB: M-Lipid Panel L AB: M-Thyroid Stimulating Hormone L AB: M-Vitamin B12 L AB: M-Vitamin D 25 Hydroxy Clinical Notes: Encouraged follow-up with gynecology to discuss her menstrual symptoms, IUD might be a good option for her 4. H x gestational diabetes L AB: M-Complete Blood Count Auto Diff L AB: M-Comprehensive Metabolic Panel L AB: M-Hemoglobin A1C L AB: M-Lipid Panel L AB: M-Thyroid Stimulating Hormone L AB: M-Vitamin B12 L AB: M-Vitamin D 25 Hydroxy 5. B WI 35.0-35.9,adult Clinical Notes: She is on an excellent job with weight loss, continue efforts. Hopefully her schedule will change such that it allows her to return to the gym which was a good emotional release for her previously. 6. M urmur Clinical Notes: No prior echo. She has been told this once before, about 4 years ago. Completely asymptomatic from a cardiovascular standpoint. No recommendation for imaging at this time but return precautions reviewed * Preventive Medicine: Immunizations: I nfluenza d one through employer. T josef Blakely TD. * Follow Up: 6 Weeks * * Sign off status: Completed true * Provider: SHELLEY Ma Date: 12/14/2024 Generated for Benigno reyna/Jennifer/Sarinaitting on: 0 12/21/2024 07:10 AM EDT History and Physical Notes * Examination Category Sub-Category Detail Notes Category Not es General Examination Heart: Regular Rate and Rhythm, 1/6 systolic murmur at mitral area Lungs: LCTAB, No wheezes, c rackles or rhonchi, Good air movement, Abdomen: Soft, NTND, BSNA, No organomegaly or peritoneal signs. Extremities: no clubbing, no lexi a, Skin: without acute rashes Oral cavity: Moist membranes Peripheral pulses: normal (2+) bilatera lly neck supple,, no thyromeg hebert,, no lymphadenopathy, General Pleasant and Coopera tive, NAD on RA, Psych Normal Mood/Affect
--- OUTSIDE RECORDS SUMMARY | 2024-12-21 07:10 | XMS_ITS | Clinical Summary ---
Author Organization [facility] Address [address] [place] [address] Care Team Providers Care It Network Engineer Name Role Phone Provider, No Known Primary Care Provider Unavail able Allergies Active Allergy Reactions Criticality Noted Date Comments Latex Rash Low 03/07/2019 Penicillins Other (See Comments) 03/07/2019 Unsure of reaction, childhood allergy. Medications Vit-Fe Fumarate-FA ( 27-) 27-1 MG tablet tablet Take 1 tablet by mouth Daily. Active ferrous sulfate 325 (65 FE) MG tablet Take 325 mg by mouth Daily With Breakfast. Active aspirin 81 MG EC tablet Take 1 tablet by mouth Daily. Active metFORMIN (Glucophage) 500 MG tabletIndication s:Diet controlled gestational diabetes mellitus (GDM) in third trimester Take 1 tablet by mouth Daily With Dinner. 30 tablet 3 2 Active Continuous Blood Gluc Sensor (Dexcom G6 Sensor)Indicatio ns:Gestational diabetes mellitus (GDM), antepartum, gestational diabetes method of control unspecified,Twin , dichorionic/diam niotic, unspecified trimester Use Every 10 (Ten) Days. 3 each 11 4 Active Continuous Blood Gluc Transmit (Dexcom G6 Transmitter) miscIndications: Gestational diabetes mellitus (GDM), antepartum, gestational diabetes method of control unspecified,Twin , dichorionic/diam niotic, unspecified trimester Use 1 each Every 3 (Three) Months. 1 each 3 4 Active Insulin Glargine (LANTUS SOLOSTAR) 100 UNIT/ML injection penIndications:G estational diabetes mellitus (GDM), antepartum, gestational diabetes method of control unspecified Inject 15 Units under the skin into the appropriate area as directed Every Night. 15 mL 1 4 Active insulin aspart (NovoLOG FlexPen) 100 UNIT/ML solution pen-injector sc penIndications:G estational diabetes mellitus (GDM), antepartum, gestational diabetes method of control unspecified,Twin , dichorionic/diam niotic, unspecified trimester Inject 4 Units under the skin into the appropriate area as directed 3 (Three) Times a Day With Meals. 15 mL 4 Active Insulin Pen Needle (Pen [place]) 31G X 5 MM miscIndications: Gestational diabetes mellitus (GDM), antepartum, gestational diabetes method of control unspecified,Twin , dichorionic/diam niotic, unspecified trimester Use 1 each 4 (Four) Times a Day. 100 each 2 4 Active Insulin Aspart, w/Niacinamide, (Fiasp FlexTouch) 100 UNIT/ML solution pen-injectorIndi cations:Gestatio nal diabetes mellitus (GDM), antepartum, gestational diabetes method of control unspecified Inject 4 Units under the skin into the appropriate area as directed 3 (Three) Times a Day With Meals. Inject 6 units under the skin into the appropriate area as directed at breakfast, 8 units at lunch and 8 units at dinner. 15 mL 1 4 Active Active Problems Problem Noted Date Diagnosed Date Low-lying placenta 04/14/2023 Assessment & Plan (05/20/2023 6:39 PM EST): Placenta for Twin A is no longer low-lying. Assessment & Plan (04/14/2023 12:01 PM EST): On routine scan today anterior placenta for twin A was noted to be low-lying being approximately 1.3 cm from the internal os. As we are second trimester most likely as uterus grows this placenta will move out of the way. Owing to her twin gestation she will have multiple ultrasounds and we will have ample opportunity to ensure that the placenta is not low-lying at the time of delivery. Previous delivery affecting 0 04/14/2023 History of gestational diabetes 03/10/2023 Gestational diabetes mellitus (GDM), antepartum 03/10/2023 Assessment & Plan (07/13/2023 3:20 PM EDT): Currently on Lantus 15 units nightly and short acting with meals recently increased to 4 units with breakfast, 5 with lunch and 6 with dinner. Assessment & Plan (06/15/2023 1:18 PM EDT): Currently on Lantus 15 units at night, patient has been unable to fill 4 units of short acting insulin but is available for pickup today. Therefore will not make changes at this time. Assessment & Plan (05/20/2023 6:39 PM EST): Patient currently on no meds for GDM. She will send us her log for review later this week as she has been doing weekly. GDM was diagnosed at 14wks, so possibly was preexisting Type 2 DM after her last delivery which was complicated by GDM. Echos performed and were normal today. - Follow-up scheduled in 4 wks Assessment & Plan (04/14/2023 12:00 PM EST): Patient recently diagnosed with gestational diabetes. Her previous was also complicated by gestational diabetes. Last was mostly diet controlled but did require low-dose of metformin at the end of . Patient has been previously through counseling for diet and diabetes management and feels he understands a diabetic diet well. Is currently checking her sugars 4 times a day. She will send her sugars weekly to the diagnostic center we will make adjustments to management as needed. Assessment & Plan (03/10/2023 11:30 AM EST): Patient had gestational diabetes in her previous 2 pregnancies and has already had an elevated 1 hour glucose tolerance test screen. She certainly has at least gestational diabetes. With diagnosis occurring very early in as potentially patient has type 2 diabetes when not . It will be important to test her glucose at her 6-week visit to ensure that she is returned to nondiabetic. Patient has a continuous glucose monitor and we will monitor the sugars regularly and make adjustments as needed. Currently her fastings appear to be doing very well and her postprandials are generally in good control as well. Twin , dichorionic/ diamniotic, unspecified trimester 05/17/2021 Assessment & Plan (07/13/2023 3:27 PM EDT): Today's ultrasound shows normal growth and normal amniotic fluid for each twin. Given twin gestation and gestational diabetes requiring insulin would recommend delivery during 37 or 38 weeks pending on primary SISAL OPERATOR preference. Follow-up here as clinically indicated. Assessment & Plan (06/15/2023 1:28 PM EDT): Appropriate appearing growth with normal fluid is 2. Follow-up growth in 4 weeks Assessment & Plan (05/20/2023 6:40 PM EST): This is patient's second set of di/di twins. The prior set was delivered by at 37wks. Cervical length appears adequate on today's scan. - Follow-up for growth scheduled in 4wks Assessment & Plan (04/14/2023 11:59 AM EST): She returns today for follow-up for dichorionic diamniotic twins. Both twins appear normally grown. Amniotic fluid volume is normal about each twin. There were no anomalies seen and no markers for trisomy. Cervical length appears normal. Twin A's placenta was low-lying but not a previa. We will rescan again in 4 weeks. Assessment & Plan (03/10/2023 11:19 AM EST): A dichorionic/diamniotic (DCDA) is a type of twin gestation where each twin has its own chorionic and amniotic sacs. DCDA pregnancies account for the majority (~76%) of all twin pregnancies. They account for all dizygotic pregnancies and ~20% of monozygotic pregnancies. With a dizygotic , two ova are independently fertilized by two sperm leading to two zygotes. With a monozygotic twin , a DCDA results from the separation of the zygotes at ~1-4 days post fertilization (morula) stage. Ultrasonographic features supporting a DCDA : First Trimester Presence of two gestational sacs with a thick echogenic chorion surrounding each embryo A thick inter-twin membrane Twin-peak sign Two yolk sacs may be seen (this, however, does not differentiate a DCDA from a monochorionic/diamniotic (MCDA) ) Second Trimester When there is no placental fusion, two separate placental sites may be seen A finding of two different genders for each twin is a definitive feature of a dizygotic which in turn will invariably mean a DCDA . If chorionicity cannot be determined, the recommendation is to manage as a monochorionic until proven otherwise. While the complication rate is still much higher with twins than a pearce , a DCDA carries the lowest rate of complications amongst twin pregnancies. Recognized complications: Increased risk of intrauterine growth restriction (IUGR) Placenta-related problems Increased risk of velamentous cord insertion Increased risk of marginal cord insertion Increased incidence of placenta previa spectrum The current recommendation for an uncomplicated DCDA is delivery at 38 weeks' gestation. Morbid obesity with BMI of 50.0-59.9, adult 05/2018 03/07/2019 Resolved Problems Problem Noted Date Diagnosed Date Resolved Date Gestational diabetes mellitu s (GDM) in third trimester 03/07/2019 03/10/2023 Social History Tobacco Use Types Packs/Day Years Used Date Smoking Tobacco: Never Smokeless Tobacco: Never Alcohol Use Standard Drinks/Week Comments Not Currently 0 (1 standard drink = 0.6 oz pure alcohol) occasional use when not AUDIT-C Answer Date Recorded Frequency of Alcohol Consumption Never 03/07/2019 Average Number of Drinks Not on file 019 Frequency of Binge Drinking Not on file 05/2018 Abuse Screen Answer Date Recorded Unsafe at Home or Work/School Not on file Feels Threatened by Someone? Not on file 03/2023 Does Anyone Keep You from Co ntacting Others or Doint Things Outside the Home? Not on file 01/15/2023 Physical Sign of Abuse Present Not on file 1 Housing Stability Answer Date Recorded Current Living Arrangements Not on file 01/04 Potentially Unsafe Housing Conditions Not on yoana e 01/15/2023 Family and Community Support Answer Bony e Recorded Help with Day-to-Day Activities Not on file 01/15/2023 Lonely or Isolated Not on file 01/15/2023 Employment Answer Date Recorded Do you want help finding or keeping work or a sherman b? Not on file 01/15/2023 Disabilities Answer Date Recorded Concentrating, Remembering, or Making Decisions Difficulty Not on file 01/15/2023 Doing Errands Independently Difficulty Not on fi le 01/15/2023 Education Answer Date Recorded Help with school or training? Not on file Preferred Language Not on file 01/15/2023 Comments No Sex and Gender Information Value Date Recorded Sex Assigned at Not on file Legal Sex Female 3:08 PM EST Gender Identity Not on file Sexual Orientation Not on file Last Filed Vital Signs Vital Sign Reading Time Taken Comments Blood Pressure 125/79 07/13/2023 2:59 PM EDT Pulse - - Temperature - - Respiratory Rate - - Oxygen Saturation - - Inhaled Oxygen Concentration - - Weight 117 kg (258 lb) 07/13/2023 2:59 PM EDT Height 162.6 cm (5' 4 ) 03/10/2023 11:10 AM EST Body Mass Index 44.29 03/10/2023 11:10 AM EST Plan of Treatment Health Maintenance Due Date Last Done Comments Annual Gynecologic Pelvic an d Breast Exam 1994 ANNUAL PHYSICAL 02/25/2019 HEPATITIS C SCREENING 02/25/2019 COVID-19 Vaccine (3 - 2024-2 6 season) 2024 05/02/2020, 04/04/2020 INFLUENZA VACCINE 01/04/2025 01/18/2019, 01/30/2010 TDAP/TD VACCINES (4 - Td or Tdap) 06/10/2033 06/11/2023, 11/21/2016, 10/23/2005 Pneumococcal Vaccine 0-49 Aged Out No longer eligible based on patient's age to complete this topic Insurance [employer] Care Teams It Network Engineer Relationship Specialty Start Date End Date Provider, No Known [facility] [place] [address] PCP - General 02/24/19
--- OUTSIDE RECORDS SUMMARY | 2024-12-21 07:10 | XMS_ITS | Patient Health Record ---
Author Organization [facility] Address [address] [place] [address] Care Team Providers Care Redipper Name Role Phone Ne Thomas Primary Care Provider [phone] Unavailable Unavaila ble Migration, Provider Unavailable Unavailable Allergies Allergen (clinical drug ingredient) Drug/Non Drug Allergy documented on EMR Reaction Allergy Type Onset Date Status Latex LATEX (uncoded) skin irritation Allergy Active Penicillin rash Drug Allergy Active Reason For Referral No Information Medications Medication SIG (Take, Route, Frequency, Duration) [...] Problem Status W/U Status Risk Notes Problem Body mass index 40+ - severely obese (101872673) BMI 45.0-49.9, adult (Z68.42) Active confirmed Problem Body mass index 40+ - morbidly obese (064364021) BMI 40.0-44.9, adult (Z68.41) Active confirmed Problem Murmur (283794206) Murmur (R01.1) Active confirmed Problem Polycystic ovary syndrome (disorder) (955602791) PCOS (polycystic ovarian syndrome) (E28.2) Active confirmed Problem Obese class II (96901720522215 5) BMI 35.0-35.9,adult (Z68.35) Active confirmed Problem Gestational diabetes mellitus (GDM) in second trimester controlled on oral hypoglycemic drug (O24.415) Active confirmed Problem History of pre-eclampsia (42524266540569 0) History of pre-eclampsia (Z87.59) Active confirmed Problem History of gestational diabetes mellitus (453862205) Hx gestational diabetes (Z86.32) Active confirmed Vital Signs Heart Rate 84 /min 12/14/2024 Temperature 98 degrees Fahrenheit 12/14/2024 Blood pressure diastolic 72 mm Hg 12/14/2024 Height 5 ft 3 in in 12/14/2024 Blood pressure systolic 118 mm Hg 12/14/2024 Weight 203 lbs 12/14/2024 BMI 35.96 kg/m2 12/14/2024 Encounters Encounter Location Date Provider Diagnosis [facility] [address] [place] [address] 07/09/2024 Provider Migration PCOS (polycystic ovarian syndrome) E28.[address] [place] [address] 12/14/2024 Ne Thomas Routine medical exam Z00.00 ; Irritability R45.4 ; PCOS (polycystic ovarian syndrome) E28.2 ; Hx gestational diabetes Z86.32 ; BMI 35.0-35.9,adult Z68.35 and Murmur R01.1 Assessments Encounter Date Diagnosis (ICD Code) Assessment Notes Treatment Notes Treatment Clinical Notes Section Notes 07/09/2024 PCOS (polycystic ovarian syndrome) (ICD-10 - E28.2) 12/14/2024 Routine medical exam (ICD-10 - Z00.00) [...] but return precautions reviewed Plan Of Treatment Pending Test Test Name Order Date M-Complete Blood Count Auto Diff 025 M-Comprehensive Metabolic Panel 12/15/19 25 M-Hemoglobin A1C 12/14/2024 M-Lipid Panel 12/14/2024 M-Thyroid Stimulating Hormone 12/14/2024 M-Vitamin B12 12/14/2024 M-Vitamin D 25 Hydroxy 12/14/2024 Insurance Providers Payer Name Payer Address Payer Phone Subscriber Number Group Number Insured Name Patient Relationship to Insured Coverage Start Date Coverage End Date [employer] [address] [address] [place] [address] [phone] [id number] Geeta Rodriguez Self - patient is the insured Medical (General) History Medical History History ICD Code gestational diabetes Surgical History Surgery Date(Month/Year) T and A 1998 Child 09/2021 tubal ligation Hospitalization History Reason Date(Month/Year) Child 09/2021 Child 04/2019
[2024-12-21 07:34] LABS: Hematocrit 36.2 % (37.0-47.0); Hemoglobin 11.7 g/dL (12.2-16.2); Immature Granulocytes % 0.2 %; Mean Corpuscular HGB Conc 32.3 g/dL (31.8-35.4); Mean Corpuscular Hemoglobin 28.4 pg (27.0-31.2); Mean Corpuscular Volume 87.9 fl (81-99); Nucleated Red Blood Cells % 0 %; Platelet Count 250 K/mm3 (142-424); Red Blood Count 4.12 M/mm3 (4.20-5.40); Red Cell Distribution Width-SD 41.6 fL; White Blood Count 6.5 K/mm3 (4.8-10.8)
[2024-12-21 08:17] LABS: Alanine Aminotransferase 15 U/L (12-78); Albumin Level 4.5 g/dl (3.5-5.0); Albumin/Globulin Ratio 1.8 (1.1-1.8); Alkaline Phosphatase 50 U/L (38-126); Anion Gap 12.6 mEq/L (5-15); Aspartate Amino Transferase 19 U/L (14-36); Bilirubin,Total 0.5 mg/dl (0.2-1.3); Blood Urea Nitrogen 14 mg/dl (7-17); Calcium 8.9 mg/dl (8.4-10.2); Carbon Dioxide 26 mmol/L (22.0-30.0); Chloride 105 mmol/L (98-107); Cholesterol 142 mg/dl (140-200); Creatinine,Serum 0.70 mg/dl (0.52-1.04); Estimated Glomerular Filt Rate 99 ml/min (>60); GFR (African American) 120 ML/MIN (>60); Globulin 2.5 g/dL (1.3-3.2); Glucose 100 mg/dl (74-100); HDL Cholesterol 45 mg/dl (40-60); Potassium 4.6 mmoL/L (3.5-5.1); Sodium 139 mmol/L (136-145); Total Protein,Serum 7.0 g/dl (6.3-8.2); Triglycerides 46 mg/dl (30-150)
[2024-12-21 08:32] LABS: 25-OH Vitamin D, Total 26.4 ng/mL (30-100)
[2024-12-21 08:47] LABS: Thyroid Stimulating Hormone 1.36 uIU/mL (0.465-4.68)
[2024-12-21 09:06] LABS: Vitamin B12 476 pg/mL (239-931)
[2024-12-21 10:09] LABS: Hemoglobin A1C 5.3 % (4.0-6.0)
== END 2024-12-21 23:59 | disposition home or self-care (01) ==
LOC: LAB 07:08
PROVIDERS: PCP Nurse Practitioner Family; Visit Provider Nurse Practitioner Family
DX: Z00.00 Encounter for general adult medical examination without abnormal findings (principal); E28.2 Polycystic ovarian syndrome; Z86.32 Personal history of gestational diabetes
CPT/HCPCS: 36415; 80053; 80061; 82306; 82607; 83036; 84443; 85025